=== PATIENT | male | born 1935 | race Caucasian/White ===

== ENCOUNTER 2018-11-24 11:26 | Inpatient (IN) ==
[2018-11-24] MEDS ORDERED: Naloxone 0.4 MG/ML INJ IVP PRN (14:45)
[2018-11-24] MEDS ORDERED: Ipratropium/Albuterol Neb 3 ML IH PRN (15:07)
--- NOTE | 2018-11-24 15:23 | Internal Med History&Physical ---
Date of Encounter: 11/24/18 Time of Encounter: 14:30 Internal Medicine - H&P: HPI Chief complaint: transfer from [place] [facility] for further evaluation of elevated D-dimer Admitted From: Intrahospital Transfer Plans for Post Hospital Care: Home History of present illness: Mr. Mann is a 82 year old male with PMH of HTN, CHF s/p ICD placement, hypothyroidism, anxiety, peripheral neuropathy, CKD s/p right nephrectomy, carot id stenosis who presented to the [place] [facility] for evaluation of shortness of breath. Pt states he was in his usual state of health yesterday. Reports of drinking six beers last night and woke up in the middle of the night feeling short of breath and diffuse chest pain with deep inspiration. Pt is noted to have severe anxiety and is very preoccupied with his medical health. He was noted to have elevated D-dimer and due to CKD, CTA chest was not done and pt was transferred to [facility] for V/Q scan. He was also noted to have Left lung base PNA for which he received Ceftriaxone prior to transfer. Pt is seen and examined with RN present at bedside. Pt is currently saturating well on nasal cannula, appears very anxious, and is noted to be hypertensive. He reports of pleuritic chest pain worsened with deep breaths. Reports of having chills last night but denies any fever or cough. He denies any headache, dizziness, vision changes, abd pain, n/v at this time. Ten point ROS is negative except as listed above Past Med Surg Social Fam HX - Past Medical History Medical history: cancer, coronary artery disease, CVA, diabetes, hypertension, renal disease, other Additional medical history: Prostate cancer. Shingles Psychiatric history: no psych history, other - Past Surgical History Additional surgical history: left kidney removed, testicle removed. skin ca, - Social History Smoking Status: Former smoker Smokeless Tobacco Status: No Alcohol use: none Drug use: none - Family History Mother Living Status: Hx Family Cardiac Disorders: Yes Internal Medicine - H&P: Meds Aspirin 81 mg PO DAILY 12/09/15 [History] Folic Acid 1 mg PO DAILY 12/09/15 [History] Levothyroxine [Levothyroxine Sodium] 137 mcg PO DAILY@0630 12/09/15 [History] Metoprolol Succinate 200 mg PO DAILY 12/09/15 [History] raNITIdine HCl [Zantac] 150 mg PO DAILY 12/09/15 [History] Cetirizine HCl [Zyrtec] 10 mg PO DAILY 06/29/17 [History] Cholecalciferol (Vitamin D3) [Vitamin D] 1,000 unit PO DAILY 06/29/17 [History] Docusate [Colace] 200 mg PO BID 06/29/17 [History] Hydralazine HCl 50 mg PO TID 06/29/17 [History] diazePAM [Valium] 5 mg PO DAILY 06/29/17 [History] hydroCHLOROthiazide [Hydrochlorothiazide] 25 mg PO DAILY 06/29/17 [History] Gabapentin [Neurontin] 600 mg PO BID 03/04/18 [History] Psyllium Husk [Metamucil] 660 gm PO BID 03/04/18 [History] Cetirizine HCl [Zyrtec] 10 mg PO 11/24/18 [History] Docusate [Colace] 200 mg PO BID 11/24/18 [History] Folic Acid 1 mg PO DAILY 11/24/18 [History] Allergy/AdvReac Type Severity Reaction Status Date / Time codeine Allergy See Verified 10/07/18 06:44 Comments sulfamethoxazole Allergy See Verified 10/07/18 06:44 [From Bactrim] Comments trimethoprim [From Bactrim] Allergy See Verified 10/07/18 06:44 Comments levofloxacin [From Levaquin] AdvReac Nausea Verified 10/07/18 06:44 All Systems PM: A 10-system review of systems was performed and is negative for pertinent findings except as documented above in the HPI. Review of systems: Ten point ROS is negative except as listed in the HPI - Constitutional Vitals: Temp Pulse Resp BP Pulse Ox 97.8 F 50 18 193/93 100 11/24/18 14:24 11/24/18 14:24 11/24/18 14:24 11/24/18 14:24 11/24/18 14:24 Exam: General: No acute distress, AAO x 3, obese, anxious HEENT: EOMI, PERRLA, NC/AT, no scleral icterus Respiratory:coarse breath sounds, no wheezing, no rales Cardiovascular: Regular, Rate, Rhythm, No murmurs GI: Soft, Non tender, non distended, normal bowel sounds Ext: No edema, no tenderness, positive pulses Neuro: AAO x 3, no focal deficits Rest of the clinical exam is noncontributory - Summary of Assessment and Plan Summary of Assessment and Plan: Mr. Mann is a 82 year old male with PMH of DM type II, HTN, CHF s/p ICD placement, hypothyroidism, anxiety, peripheral neuropathy, CKD s/p right nephrectomy, carotid stenosis who presented to the [place] ER for evaluation of shortness of breath. Assessment/Plan: 1. Acute respiratory distress secondary to LLL PNA continue IV Ceftriaxone and Azithromycin bronchodilator support as needed O2 supplementation as needed f/u blood cultures will closely monitor respiratory status titrate off O2 therapy as tolerated to maintain O2 saturation >92% 2. Elevated D-dimer f/u V/Q scan if positive, will start anticoagulation with heparin drip 3. Chest pain likely pleuritic and unlikely ACS will monitor serial TNI at this time will obtain 2D echo 4. CKD hx of nephrectomy renal function at baseline, will continue to monitor 5. Uncontrolled HTN restarted home medications will closely monitor BP will adjust antihypertensive meds if remains hypertensive 6. Hypothyroidism continue home dose of levothyroxine 7. Anxiety continue home meds 8. CHF reported hx however not on any HF med regimen currently no clinical signs of acute decompensation 9. Alcohol abuse pt denies daily alcohol use will continue Folate and Thiamine supplementation will closely monitor for signs of alcohol withdrawal if needed will initiate CIWA protocol 10. DVT ppx: Heparin SQ LOS > 2 midnights Care plan discussed with patient/RN - Time Spent With Patient Total time spent is greater than 50% in coordination of care (as documented) at patient's floor/unit and/or counseling patient: 25 - 35 minutes
[2018-11-24] MEDS ORDERED: *HR* Heparin 5,000 UNIT/ML VIAL IVP ONE (16:08)
[2018-11-24] MEDS ORDERED: *HR* Heparin 5,000 UNIT/ML VIAL IVP PRN ×2 (16:08)
[2018-11-24 16:55] LABS: Hematocrit 48.7 % (37.5-50.1); Hemoglobin 15.4 g/dL (12.9-16.9); Mean Corpuscular HGB Conc 31.6 g/dL (31.6-35.5); Mean Corpuscular Hemoglobin 30.4 pg (28.0-33.3); Mean Corpuscular Volume 96.1 fL (83.0-100.0); Mean Platelet Volume 10.9 fL (9.4-12.4); Platelet Count 255 K/mcL (140-400); Red Blood Count 5.07 M/mcL (4.19-5.50); Red Cell Distribution Width 14.4 % (11.5-14.5)
[2018-11-24 17:06] LABS: INR 0.9; Prothrombin Time 10.4 Seconds (9.4-12.1)
[2018-11-24] MEDS: hydroCHLOROthiazide 25 MG TABLET PO SCH (17:43)
[2018-11-24] MEDS: hydrALAZINE 25 MG TABLET PO SCH ×2 (17:43→20:37)
[2018-11-24] MEDS: Azithromycin 500 MG in D5% in Water 250 ML IVPB SCH (17:43)
[2018-11-24] MEDS: Heparin 25,000 UNIT/250 ML D5W 25,000 UNIT/250 ML IV.SOLN IVC SCH (17:46)
[2018-11-24] MEDS ORDERED: *HR* Heparin 5,000 UNIT/ML VIAL SQ SCH (18:00)
[2018-11-24] MEDS ORDERED: Nitroglycerin 0.4 MG TAB.SUBL SL ONE (18:58)
[2018-11-24] MEDS: Nitroglycerin 0.4 MG TAB.SUBL SL PRN ×2 (19:00→19:06)
[2018-11-24] MEDS ORDERED: *HR* LORazepam 1 MG TABLET PO ONE (19:44)
[2018-11-24] MEDS: Gabapentin 300 MG CAPSULE PO SCH (20:37)
[2018-11-25 00:46] LABS: Basophils % 0.5 %; Eosinophils # 0.1 K/mcL (0.0-0.6); Eosinophils % 0.6 %; Hematocrit 40.8 % (37.5-50.1); Immature Granulocytes % 0.5 % (0-4); Lymphocytes # 1.2 K/mcL (0.6-4.6); Lymphocytes % 13.3 %; Mean Corpuscular HGB Conc 31.9 g/dL (31.6-35.5); Mean Corpuscular Hemoglobin 30.2 pg (28.0-33.3); Mean Corpuscular Volume 94.9 fL (83.0-100.0); Mean Platelet Volume 10.8 fL (9.4-12.4); Monocytes # 1.1 K/mcL (0.0-1.3); Neutrophils # 6.3 K/mcL (1.6-8.9); Platelet Count 201 K/mcL (140-400); Red Cell Distribution Width 14.3 % (11.5-14.5); Segmented Neutrophils % 72.1 %
[2018-11-25 01:05] LABS: Calcium 9.1 mg/dL (8.6-10.3); Phosphorous 3.4 mg/dL (2.7-4.5); Potassium 4.2 mEq/L (3.5-5.1)
[2018-11-25 04:31] LABS: Bilirubin,Urine Negative (Negative); Blood,Urine Negative (Negative); Clarity,Urine Clear (Clear); Color,Urine Yellow (Yellow); Glucose,Urine (UA) Normal (Normal); Ketones,Urine Negative (Negative); Leukocyte Esterase,Urine Negative (Negative); Nitrite,Urine Negative (Negative); Protein,Urine Negative (Neg-Trace); Specific Gravity,Urine < 1.005 (1.010-1.025); Urobilinogen,Urine Normal (Normal)
[2018-11-25] MEDS ORDERED: Metoprolol XL (24 HR) Succ 50 MG TAB.ER.24H PO SCH (09:00)
[2018-11-25] MEDS ORDERED: Cyanocobalamin (B-12) 1,000 MCG TABLET PO SCH (09:00)
[2018-11-25] MEDS ORDERED: Folic Acid 1 MG TABLET PO SCH (09:00)
[2018-11-25] MEDS: Cholecalciferol (D-3) 1,000 UNIT TABLET PO SCH (09:55)
[2018-11-25] MEDS: Thiamine (B-1) 100 MG TABLET PO SCH (09:55)
[2018-11-25] MEDS: Gabapentin 300 MG CAPSULE PO SCH ×2 (09:55→20:34)
[2018-11-25] MEDS: diazePAM 5 MG TABLET PO SCH (09:56)
[2018-11-25] MEDS: hydroCHLOROthiazide 25 MG TABLET PO SCH (09:56)
[2018-11-25] MEDS: hydrALAZINE 25 MG TABLET PO SCH ×3 (09:56→20:34)
[2018-11-25] MEDS: cefTRIAXone 1,000 MG in Water for inj. (sterile) 20 ML 10 ML IVP SCH (09:57)
[2018-11-25] MEDS: Aspirin 81 MG TAB.CHEW PO SCH (09:57)
[2018-11-25] MEDS: Folic Acid 1 MG TABLET PO SCH (09:57)
[2018-11-25] MEDS: Metoprolol XL (24 HR) Succ 50 MG TAB.ER.24H PO SCH (09:57)
--- NOTE | 2018-11-25 10:39 | Cardiology Consult Note ---
Date of Encounter: 11/25/18 Time of Encounter: 10:35 Assessment and Plan (1) Chest pain Current Visit: Yes Status: Acute Chest pain, SOB atypical for ischemia. Likely secondary to pneumonia. Would check echo and trend troponins. Further workup based one results. Qualifiers: Qualified Code(s): R07.9 - Chest pain, unspecified Discussion w patient/family: The assessment and plan as outlined above was discussed with the patient and/or family members who expressed understanding and agreement. All questions were answered. Thank you for involving us in the care of your patient. Please call [facility] any questions. History of Present Illness Consult date: 11/25/18 Requesting physician: Angelica Jensen Consult reason: Elevated trop. Chief complaint: SOB, cheat pain History of present illness: Mr. Mann is a 82 year old male with history of AF, tachybrady S/P pacemaker and CRI presented with the acute onset of SOB and atypical cheat pain. Last heart cath 2013 reportedly showed minimal CAD. Pain described and pleuritic and accross chest. Associated SOB. At outside hospital D- Dimer was elevated, subsequent VQ scan negative. Found to have pneumonia. Past Med Surg Social Fam HX - Past Medical History Medical history: cancer, coronary artery disease, CVA, diabetes, hypertension, renal disease, other Additional medical history: Prostate cancer. Shingles Psychiatric history: no psych history, other - Past Surgical History Surgical History: cancer surgery Additional surgical history: left kidney removed, testicle removed. skin ca, - Social History Smoking Status: Former smoker Smokeless Tobacco Status: No Alcohol use: none Drug use: none - Family History Mother Living Status: Hx Family Cardiac Disorders: Yes Medications and Allergies Aspirin 81 mg PO DAILY 12/09/15 [History] Folic Acid 1 mg PO DAILY 12/09/15 [History] Levothyroxine [Levothyroxine Sodium] 137 mcg PO DAILY@0630 12/09/15 [History] Metoprolol Succinate 200 mg PO DAILY 12/09/15 [History] raNITIdine HCl [Zantac] 150 mg PO DAILY 12/09/15 [History] Cetirizine HCl [Zyrtec] 10 mg PO DAILY 06/29/17 [History] Cholecalciferol (Vitamin D3) [Vitamin D] 1,000 unit PO DAILY 06/29/17 [History] Docusate [Colace] 200 mg PO BID 06/29/17 [History] Hydralazine HCl 50 mg PO TID 06/29/17 [History] diazePAM [Valium] 5 mg PO DAILY 06/29/17 [History] hydroCHLOROthiazide [Hydrochlorothiazide] 25 mg PO DAILY 06/29/17 [History] Gabapentin [Neurontin] 600 mg PO BID 03/04/18 [History] Psyllium Husk [Metamucil] 660 gm PO BID 03/04/18 [History] Cetirizine HCl [Zyrtec] 10 mg PO 11/24/18 [History] Docusate [Colace] 200 mg PO BID 11/24/18 [History] Folic Acid 1 mg PO DAILY 11/24/18 [History] Allergy/AdvReac Type Severity Reaction Status Date / Time codeine Allergy See Verified 10/07/18 06:44 Comments sulfamethoxazole Allergy See Verified 10/07/18 06:44 [From Bactrim] Comments trimethoprim [From Bactrim] Allergy See Verified 10/07/18 06:44 Comments levofloxacin [From Levaquin] AdvReac Nausea Verified 10/07/18 06:44 All Systems Review: The remainder of the systems were reviewed and are negative Physical Examination Vital Signs, Last 4 Hours Temp Pulse BP Pulse Ox 11/25/18 07:05 97.9 F 49 149/70 98 General: Conversant, No Apparent Distress HEENT: Atraumatic, Normocephaly, Mucus Membranes Moist Neck: No JVD, Normal carotid pulses Cardiac: Reg Rate and Rhythm, Normal S1 and S2, No Murmur Lungs: Other (Decreased at bases. ) Neuro: Alert and responsive, No focal deficits noted Abdomen: Soft, Non-Tender Skin: No rashes noted on visualized skin Extremities: No Clubbing, No Cyanosis, No Edema, Normal Pulses Results 11/25/18 00:32 11/25/18 00:32 Lab Results 11/24/18 11/24/18 11/24/18 15:20 16:36 16:36 WBC 11.7 H Hgb 15.4 Hct 48.7 Plt Count 255 INR 0.9 Sodium Potassium Chloride Carbon Dioxide BUN Creatinine Glucose Calcium Magnesium Troponin I 0.17 H* 11/24/18 11/25/18 11/25/18 21:15 00:32 00:32 WBC 8.7 Hgb 13.0 D Hct 40.8 Plt Count 201 INR Sodium 135 L Potassium 4.2 Chloride 98 Carbon Dioxide 32 H BUN 33 H Creatinine 1.60 H Glucose 106 H Calcium 9.1 Magnesium 2.0 Troponin I 0.23 H* - EKG Interpretation EKG results cardiology: personally reviewed (Underlying AF, V pacing) Consult Discharge Plan - Plan Referrals: NONE,PCP [Primary Care Provider] -
--- NOTE | 2018-11-25 12:16 | Internal Med Progress Note ---
Hospitalist Progress Note - Encounter Date of Encounter: 11/25/18 Time of Encounter: 12:11 - Subjective Interval History: Patient seen and examined earlier today. Pt sitting in chair and states he feels significantly better compared to previous day. He has extreme anxiety about his medical health and states he gets flustered and starts feeling short of breath frequently because of his anxiety He is calm during my evaluation. Extensive counseling was provided in regards to patient's current hospital diagnosis and his co-morbidities. He denies any shortness of breath or chest pain at this time. ten point ROS is negative except as listed above - Exam Vitals: Temp Pulse Resp BP Pulse Ox 97.8 F 76 16 112/72 90 11/25/18 11:17 11/25/18 11:17 11/25/18 04:35 11/25/18 11:17 11/25/18 11:17 All Lab Results (24 Hours) 11/24/18 11/24/18 11/24/18 Range/Units 15:20 16:36 16:36 WBC 11.7 H (4.3-11.1) K/mcL RBC 5.07 (4.19-5.50) M/mcL Hgb 15.4 (12.9-16.9) g/dL Hct 48.7 (37.5-50.1) % MCV 96.1 (83.0-100.0) fL MCH 30.4 (28.0-33.3) pg MCHC 31.6 (31.6-35.5) g/dL RDW 14.4 (11.5-14.5) % Plt Count 255 (140-400) K/mcL MPV 10.9 (9.4-12.4) fL Immature Gran % (0-4) % Seg Neutrophils % % Lymphocytes % % Monocytes % % Eosinophils % % Basophils % % Neutrophils # (1.6-8.9) K/mcL Lymphocytes # (0.6-4.6) K/mcL Monocytes # (0.0-1.3) K/mcL Eosinophils # (0.0-0.6) K/mcL Basophils # (0.0-0.2) K/mcL PT 10.4 (9.4-12.1) Seconds INR 0.9 Heparin Anti-Xa, Unfract 0.00 L (0.30-0.70) IU/mL Sodium (136-145) mEq/L Potassium (3.5-5.1) mEq/L Chloride (98-107) mEq/L Carbon Dioxide (23-29) mEq/L BUN (8-23) mg/dL Creatinine (0.70-1.30) mg/dL Est GFR ( Amer) (> 60) Est GFR (Non-Af Amer) (> 60) BUN/Creatinine Ratio (6-26) Glucose (70-105) mg/dL POC Glucose (70-99) mg/dL Calculated Osmolality (280-300) Calcium (8.6-10.3) mg/dL Phosphorus (2.7-4.5) mg/dL Magnesium (1.6-2.6) mg/dL Troponin I 0.17 H* (< 0.04) ng/mL Urine Color (Yellow) Urine Clarity (Clear) Urine pH (5.0-8.0) pH Units Ur Specific Banner (1.010-1.025) Urine Protein (Neg-Trace) mg/dL Urine Glucose (UA) (Normal) mg/dL Urine Ketones (Negative) mg/dL Urine Blood (Negative) Urine Nitrite (Negative) Urine Bilirubin (Negative) Urine Urobilinogen (Normal) mg/dL Ur Leukocyte Esterase (Negative) Ur Culture Indicated? (NO) 11/24/18 11/24/18 11/24/18 Range/Units 16:44 20:01 21:15 WBC (4.3-11.1) K/mcL RBC (4.19-5.50) M/mcL Hgb (12.9-16.9) g/dL Hct (37.5-50.1) % MCV (83.0-100.0) fL MCH (28.0-33.3) pg MCHC (31.6-35.5) g/dL RDW (11.5-14.5) % Plt Count (140-400) K/mcL MPV (9.4-12.4) fL Immature Gran % (0-4) % Seg Neutrophils % % Lymphocytes % % Monocytes % % Eosinophils % % Basophils % % Neutrophils # (1.6-8.9) K/mcL Lymphocytes # (0.6-4.6) K/mcL Monocytes # (0.0-1.3) K/mcL Eosinophils # (0.0-0.6) K/mcL Basophils # (0.0-0.2) K/mcL PT (9.4-12.1) Seconds INR Heparin Anti-Xa, Unfract (0.30-0.70) IU/mL Sodium (136-145) mEq/L Potassium (3.5-5.1) mEq/L Chloride (98-107) mEq/L Carbon Dioxide (23-29) mEq/L BUN (8-23) mg/dL Creatinine (0.70-1.30) mg/dL Est GFR ( Amer) (> 60) Est GFR (Non-Af Amer) (> 60) BUN/Creatinine Ratio (6-26) Glucose (70-105) mg/dL POC Glucose 113 H 129 H (70-99) mg/dL Calculated Osmolality (280-300) Calcium (8.6-10.3) mg/dL Phosphorus (2.7-4.5) mg/dL Magnesium (1.6-2.6) mg/dL Troponin I 0.23 H* (< 0.04) ng/mL Urine Color (Yellow) Urine Clarity (Clear) Urine pH (5.0-8.0) pH Units Ur Specific Banner (1.010-1.025) Urine Protein (Neg-Trace) mg/dL Urine Glucose (UA) (Normal) mg/dL Urine Ketones (Negative) mg/dL Urine Blood (Negative) Urine Nitrite (Negative) Urine Bilirubin (Negative) Urine Urobilinogen (Normal) mg/dL Ur Leukocyte Esterase (Negative) Ur Culture Indicated? (NO) 11/25/18 11/25/18 11/25/18 Range/Units 00:32 00:32 00:32 WBC 8.7 (4.3-11.1) K/mcL RBC 4.30 (4.19-5.50) M/mcL Hgb 13.0 D (12.9-16.9) g/dL Hct 40.8 (37.5-50.1) % MCV 94.9 (83.0-100.0) fL MCH 30.2 (28.0-33.3) pg MCHC 31.9 (31.6-35.5) g/dL RDW 14.3 (11.5-14.5) % Plt Count 201 (140-400) K/mcL MPV 10.8 (9.4-12.4) fL Immature Gran % 0.5 (0-4) % Seg Neutrophils % 72.1 % Lymphocytes % 13.3 % Monocytes % 13.0 % Eosinophils % 0.6 % Basophils % 0.5 % Neutrophils # 6.3 (1.6-8.9) K/mcL Lymphocytes # 1.2 (0.6-4.6) K/mcL Monocytes # 1.1 (0.0-1.3) K/mcL Eosinophils # 0.1 (0.0-0.6) K/mcL Basophils # 0.0 (0.0-0.2) K/mcL PT (9.4-12.1) Seconds INR Heparin Anti-Xa, Unfract 0.40 (0.30-0.70) IU/mL Sodium 135 L (136-145) mEq/L Potassium 4.2 (3.5-5.1) mEq/L Chloride 98 (98-107) mEq/L Carbon Dioxide 32 H (23-29) mEq/L BUN 33 H (8-23) mg/dL Creatinine 1.60 H (0.70-1.30) mg/dL Est GFR ( Amer) 50 L (> 60) Est GFR (Non-Af Amer) 41 L (> 60) BUN/Creatinine Ratio 21 (6-26) Glucose 106 H (70-105) mg/dL POC Glucose (70-99) mg/dL Calculated Osmolality 288 (280-300) Calcium 9.1 (8.6-10.3) mg/dL Phosphorus 3.4 (2.7-4.5) mg/dL Magnesium 2.0 (1.6-2.6) mg/dL Troponin I (< 0.04) ng/mL Urine Color (Yellow) Urine Clarity (Clear) Urine pH (5.0-8.0) pH Units Ur Specific Banner (1.010-1.025) Urine Protein (Neg-Trace) mg/dL Urine Glucose (UA) (Normal) mg/dL Urine Ketones (Negative) mg/dL Urine Blood (Negative) Urine Nitrite (Negative) Urine Bilirubin (Negative) Urine Urobilinogen (Normal) mg/dL Ur Leukocyte Esterase (Negative) Ur Culture Indicated? (NO) 11/25/18 11/25/1811/25/19 Range/Units 04:22 06:21 10:56 WBC (4.3-11.1) K/mcL RBC (4.19-5.50) M/mcL Hgb (12.9-16.9) g/dL Hct (37.5-50.1) % MCV (83.0-100.0) fL MCH (28.0-33.3) pg MCHC (31.6-35.5) g/dL RDW (11.5-14.5) % Plt Count (140-400) K/mcL MPV (9.4-12.4) fL Immature Gran % (0-4) % Seg Neutrophils % % Lymphocytes % % Monocytes % % Eosinophils % % Basophils % % Neutrophils # (1.6-8.9) K/mcL Lymphocytes # (0.6-4.6) K/mcL Monocytes # (0.0-1.3) K/mcL Eosinophils # (0.0-0.6) K/mcL Basophils # (0.0-0.2) K/mcL PT (9.4-12.1) Seconds INR Heparin Anti-Xa, Unfract 0.29 L (0.30-0.70) IU/mL Sodium (136-145) mEq/L Potassium (3.5-5.1) mEq/L Chloride (98-107) mEq/L Carbon Dioxide (23-29) mEq/L BUN (8-23) mg/dL Creatinine (0.70-1.30) mg/dL Est GFR ( Amer) (> 60) Est GFR (Non-Af Amer) (> 60) BUN/Creatinine Ratio (6-26) Glucose (70-105) mg/dL POC Glucose (70-99) mg/dL Calculated Osmolality (280-300) Calcium (8.6-10.3) mg/dL Phosphorus (2.7-4.5) mg/dL Magnesium (1.6-2.6) mg/dL Troponin I 0.08 H* (< 0.04) ng/mL Urine Color Yellow (Yellow) Urine Clarity Clear (Clear) Urine pH 6.0 (5.0-8.0) pH Units Ur Specific Banner < 1.005 L (1.010-1.025) Urine Protein Negative (Neg-Trace) mg/dL Urine Glucose (UA) Normal (Normal) mg/dL Urine Ketones Negative (Negative) mg/dL Urine Blood Negative (Negative) Urine Nitrite Negative (Negative) Urine Bilirubin Negative (Negative) Urine Urobilinogen Normal (Normal) mg/dL Ur Leukocyte Esterase Negative (Negative) Ur Culture Indicated? NO (NO) Exam: General: No acute distress, AAO x 3, obese HEENT: EOMI, NC/AT, no scleral icterus Respiratory:coarse breath sounds, no wheezing, no rales Cardiovascular: Regular, Rate, Rhythm, No murmurs GI: Soft, Non tender, non distended, normal bowel sounds Ext: No edema, no tenderness, positive pulses Neuro: AAO x 3, no focal deficits Rest of the clinical exam is noncontributory - Summary of Assessment and Plan Summary of Assessment and Plan: Mr. Mann is a 82 year old male with PMH of DM type II, HTN, CHF s/p ICD placement, hypothyroidism, anxiety, peripheral neuropathy, CKD s/p right nephrectomy, carotid stenosis who presented to the [place] ER for evaluation of shortness of breath. Assessment/Plan: 1. Acute respiratory distress secondary to LLL PNA continue IV Ceftriaxone and Azithromycin (day 2) bronchodilator support as needed O2 supplementation as needed blood cultures reporting no growth thus far will closely monitor respiratory status titrate off O2 therapy as tolerated to maintain O2 saturation >92% 2. Elevated D-dimer VQ scan negative for PE 3. Chest pain given elevated TNI, pt was started on heparin drip cardiology input appreciated will continue heparin drip as per cardio f/u 2D echo 4. CKD hx of nephrectomy renal function at baseline, will continue to monitor 5. Uncontrolled HTN BP within acceptable range continue current management will closely monitor BP will adjust antihypertensive meds if remains hypertensive 6. Hypothyroidism continue home dose of levothyroxine 7. Anxiety continue home meds 8. CHF reported hx however not on any HF med regimen currently no clinical signs of acute decompensation 9. Alcohol abuse pt denies daily alcohol use will continue Folate and Thiamine supplementation will closely monitor for signs of alcohol withdrawal if needed will initiate CIWA protocol 10. DVT ppx: on Heparin drip Care plan discussed with patient/RN - Time Spent with Patient Total time spent is greater than 50% in coordination of care (as documented) at patient's floor/unit and/or counseling patient: 38 minutes Greater than 35 minutes Plan of Care Discussed with: patient (patient/RN) Internal Medicine: Result - Labs CBC & Chem 7: 11/25/18 00:32 11/25/18 00:32 Labs: Short CBC 11/24/18 11/25/18 Range/Units 16:36 00:32 WBC 11.7 H 8.7 (4.3-11.1) K/mcL Hgb 15.4 13.0 D (12.9-16.9) g/dL Hct 48.7 40.8 (37.5-50.1) % Plt Count 255 201 (140-400) K/mcL Neutrophils # 6.3 (1.6-8.9) K/mcL BMP 11/25/18 00:32 Sodium 135 L Potassium 4.2 Chloride 98 Carbon Dioxide 32 H BUN 33 H Creatinine 1.60 H Glucose 106 H Calcium 9.1 Cardiac Enzymes 11/24/18 11/24/18 11/25/18 Range/Units 15:20 21:15 10:56 Troponin I 0.17 H* 0.23 H* 0.08 H* (< 0.04) ng/mL Urine 11/25/18 Range/Units 04:22 Urine Color Yellow (Yellow) Urine Clarity Clear (Clear) Urine pH 6.0 (5.0-8.0) pH Units Ur Specific Banner < 1.005 L (1.010-1.025) Urine Protein Negative (Neg-Trace) mg/dL Urine Glucose (UA) Normal (Normal) mg/dL - ABG Interpretation ABG results: PT/INR, D-dimer PT 10.4 Seconds (9.4-12.1) 11/24/18 16:36 - Impressions Impressions Pulmonary Perfusion Imaging 11/24/18 14:46 IMPRESSION: Low probability for pulmonary embolus. D/ / Daniel Paul MD / Daniel Paul MD Interpreting Provider: Daniel Paul MD Consult Discharge Plan - Plan Referrals: NONE,PCP [Primary Care Provider] -
--- NOTE | 2018-11-25 12:47 | Event Note ---
Date of Encounter: 11/25/18 Time of Encounter: 12:40 - Cardiology Event Note Discussed with Dr. Eligio Barnes, will continue IV Hep. gtt for now.
[2018-11-25] MEDS: Azithromycin 500 MG in D5% in Water 250 ML IVPB SCH (16:04)
[2018-11-25] MEDS: Heparin 25,000 UNIT/250 ML D5W 25,000 UNIT/250 ML IV.SOLN IVC SCH (17:26)
[2018-11-26 07:13] LABS: Calcium 9.4 mg/dL (8.6-10.3); Magnesium 2.1 mg/dL (1.6-2.6); Phosphorous 3.1 mg/dL (2.7-4.5); Potassium 4.2 mEq/L (3.5-5.1)
[2018-11-26] MEDS: Thiamine (B-1) 100 MG TABLET PO SCH (08:58)
[2018-11-26] MEDS: hydroCHLOROthiazide 25 MG TABLET PO SCH (08:59)
[2018-11-26] MEDS: Cholecalciferol (D-3) 1,000 UNIT TABLET PO SCH (08:59)
[2018-11-26] MEDS: hydrALAZINE 25 MG TABLET PO SCH ×3 (08:59→21:30)
[2018-11-26] MEDS: Aspirin 81 MG TAB.CHEW PO SCH (08:59)
[2018-11-26] MEDS: diazePAM 5 MG TABLET PO SCH (09:00)
[2018-11-26] MEDS: Metoprolol XL (24 HR) Succ 50 MG TAB.ER.24H PO SCH ×2 (09:00→11:56)
[2018-11-26] MEDS: Gabapentin 300 MG CAPSULE PO SCH ×2 (09:00→21:31)
[2018-11-26] MEDS: Folic Acid 1 MG TABLET PO SCH (09:00)
[2018-11-26] MEDS: cefTRIAXone 1,000 MG in Water for inj. (sterile) 20 ML 10 ML IVP SCH (09:01)
--- NOTE | 2018-11-26 10:32 | Internal Med Progress Note ---
Hospitalist Progress Note - Encounter Date of Encounter: 11/26/18 Time of Encounter: 10:30 - Subjective Interval History: Patient seen and examined earlier today. Resting in bed and states he feels tired today but denies any shortness of breath, chest pain, cough, abd pain, n/v, fever, or chills. He remains on heparin drip and awaiting TTE. No overnight events reported. Ten point ROS is negative except as listed above - Exam Vitals: Temp Pulse Resp BP Pulse Ox 97.6 F 49 16 158/72 90 11/26/18 07:01 11/26/18 07:01 11/26/18 05:39 11/26/18 07:01 11/26/18 07:01 Exam: General: No acute distress, AAO x 3, obese HEENT: EOMI, NC/AT, no scleral icterus Respiratory:equal air entry bilaterally, no wheezing, no rales Cardiovascular: Regular Rhythm, Sinus bradycardia present, No murmurs GI: Soft, Non tender, non distended, normal bowel sounds Ext: No edema, no tenderness, positive pulses Neuro: AAO x 3, no focal deficits Rest of the clinical exam is noncontributory - Summary of Assessment and Plan Summary of Assessment and Plan: Mr. Mann is a 82 year old male with PMH of DM type II, HTN, CHF s/p ICD placement, hypothyroidism, anxiety, peripheral neuropathy, CKD s/p right nephrectomy, carotid stenosis who presented to the [place] ER for evaluation of shortness of breath. Assessment/Plan: 1. Acute respiratory distress secondary to LLL PNA continue IV Ceftriaxone and Azithromycin (day 3) bronchodilator support as needed O2 supplementation as needed blood cultures reporting no growth thus far will closely monitor respiratory status titrate off O2 therapy as tolerated to maintain O2 saturation >92% 2. Elevated D-dimer VQ scan negative for PE 3. Chest pain given elevated TNI, pt was started on heparin drip cardiology input appreciated will continue heparin drip as per cardio f/u 2D echo 4. CKD hx of nephrectomy renal function at baseline, will continue to monitor 5. Uncontrolled HTN Noted to be hypertensive this morning BB on hold due to bradycardia will closely monitor BP will adjust antihypertensive meds if remains hypertensive 6. Hypothyroidism continue home dose of levothyroxine 7. Anxiety continue home meds 8. CHF reported hx however not on any HF med regimen currently no clinical signs of acute decompensation 9. Alcohol abuse pt denies daily alcohol use will continue Folate and Thiamine supplementation no clinical signs of alcohol withdrawal reported, will continue to closely monitor for signs of alcohol withdrawal 10. DVT ppx: on Heparin drip Care plan discussed with patient/RN/consulting provider - Time Spent with Patient Total time spent is greater than 50% in coordination of care (as documented) at patient's floor/unit and/or counseling patient: 25 - 35 minutes Internal Medicine: Result - Labs CBC & Chem 7: 11/25/18 00:32 11/26/18 06:01 Labs: BMP 11/26/18 06:01 Sodium 139 Potassium 4.2 Chloride 99 Carbon Dioxide 35 H BUN 36 H Creatinine 1.52 H Glucose 108 H Calcium 9.4 Cardiac Enzymes 11/25/18 Range/Units 10:56 Troponin I 0.08 H* (< 0.04) ng/mL - ABG Interpretation ABG results: PT/INR, D-dimer PT 10.4 Seconds (9.4-12.1) 11/24/18 16:36 Consult Discharge Plan - Plan Referrals: NONE,PCP [Primary Care Provider] -
--- NOTE | 2018-11-26 11:01 | Cardiology Progress Note ---
Date of Encounter: 11/26/18 Time of Encounter: 11:00 Assessment and Plan (1) Community acquired pneumonia Current Visit: No Status: Acute Per Cardiology: On antibiotics. Management per primary service. Qualifiers: Laterality: unspecified laterality Qualified Code(s): J18.9 - Pneumonia, unspecified organism (2) Chest pain Current Visit: Yes Status: Acute Per Cardiology: Previosu note reviewed: "Chest pain, SOB atypical for ischemia. Likely secondary to pneumonia. Would check echo and trend troponins. Further workup based one results". Echo pending. Qualifiers: Qualified Code(s): R07.9 - Chest pain, unspecified (3) Elevated troponin I measurement Current Visit: Yes Status: Acute Per Cardiology: Troponins mildly elevated, flat and adynamic with peak of 0.23. On heparin drip. Chest pain-free. Echo pending. Further recommendations after echo. No cardiac rehabilitation consult warranted at this juncture. On aspirin and beta aiyana. (4) Elevated d-dimer Current Visit: No Status: Acute Per Cardiology: VQ scan low probability for PE. (5) Hypertension, essential Current Visit: No Status: Chronic Per Cardiology: It appears Toprol-XL 200 mg by mouth daily held this morning for concerns of bradycardia. Recommend continue to give as patient has pacemaker with low s etting set at 50. Average heart rate on telemetry past 12 hours 50 with ventricular pacing. Do not hold beta aiyana. Discussion w patient/family: The assessment and plan as outlined above was discussed with the patient and/or family members who expressed understanding and agreement. All questions were answered. Thank you for involving us in the care of your patient. Please call with any questions. Subjective Principal diagnosis: Elevated Trop Interval history: Denies any chest pain. Reports shortness of breath has improved during hospital stay. Denies any active bleeding or blood loss. Objective Vital Signs, Last 4 Hours Temp Pulse BP Pulse Ox 11/26/18 07:01 97.6 F 49 158/72 90 General: Conversant, No Apparent Distress HEENT: Atraumatic, Normocephaly, Mucus Membranes Moist Neck: No JVD, Normal carotid pulses Cardiac: Reg Rate and Rhythm, Normal S1 and S2, No Murmur Lungs: Normal Breath Sounds, No Wheeze, Rales, Rhonchi Neuro: Alert and responsive, No focal deficits noted Abdomen: Soft, Non-Tender Skin: No rashes noted on visualized skin Musculoskeletal: No Chest Wall Tenderness Extremities: No Clubbing, No Cyanosis, No Edema, Normal Pulses Results 11/25/18 00:32 11/26/18 06:01 Lab Results Laboratory Tests 11/24/18 11/24/18 11/24/18 15:20 16:36 21:15 INR 0.9 Creatinine Est GFR (Non-Af Amer) Troponin I 0.17 H* 0.23 H* 11/25/18 11/26/18 10:56 06:01 INR Creatinine 1.52 H Est GFR (Non-Af Amer) 44 L Troponin I 0.08 H* ITS Impressions Pulmonary Perfusion Imaging 11/24/18 14:46 IMPRESSION: Low probability for pulmonary embolus. D/ / Daniel Paul MD / Daniel Paul MD Interpreting Provider: Daniel Paul MD Active Medications Albuterol/Ipratropium (Duoneb) 3 ml IH [id number] PRN PRN Reason: Shortness Of Breath/Wheezing Stop: 05/26/19 15:08 Aspirin (Aspirin) 81 mg PO DAILY [facility] Stop: 05/27/19 09:01 Last Admin: 11/26/18 08:59 Dose: 81 mg Documented by: Diazepam (Valium) 5 mg PO DAILY [facility] Stop: 05/27/19 09:01 Last Admin: 11/26/18 09:00 Dose: 5 mg Documented by: Docusate Sodium (Colace) 200 mg PO BID [facility]; Protocol Stop: 05/26/19 21:01 Last Admin: 11/26/18 08:59 Dose: 200 mg Documented by: Folic Acid (Folic Acid) 1 mg PO DAILY [facility] Stop: 05/27/19 09:01 Last Admin: 11/26/18 09:00 Dose: 1 mg Documented by: Gabapentin (Neurontin) 600 mg PO BID [facility] Stop: 05/26/19 21:01 Last Admin: 11/26/18 09:00 Dose: 600 mg Documented by: Heparin Sodium (Porcine) (Heparin) 4,000 unit IVP Q6HR PRN PRN Reason: SEE COMMENTS Stop: 05/26/19 16:09 Heparin Sodium (Porcine) (Heparin) 2,000 unit IVP Q6H PRN PRN Reason: SEE COMMENTS Stop: 05/26/19 16:09 Last Admin: 11/25/18 07:59 Dose: 2,000 unit Documented by: Hydralazine HCl (Hydralazine) 50 mg PO TID [facility] Stop: 05/26/19 15:01 Last Admin: 11/26/18 08:59 Dose: 50 mg Documented by: Hydrochlorothiazide (Hydrochlorothiazide) 25 mg PO DAILY [facility]; Protocol Stop: 05/26/19 15:01 Last Admin: 11/26/18 08:59 Dose: 25 mg Documented by: Azithromycin 500 mg/ Dextrose 250 mls @ 252 mls/hr IVPB Q24H [facility] Stop: 05/26/19 15:01 Last Infusion: 11/25/18 17:30 Dose: Infused Documented by: Ceftriaxone Sodium 1,000 mg/ (Sterile Water) 10 mls @ 600 mls/hr IVP DAILY [facility] Stop: 05/27/19 09:01 Last Admin: 11/26/18 09:01 Dose: 600 mls/hr Documented by: Heparin Sodium/Dextrose (Heparin 25,000 Unit/250 Ml D5w) 25,000 unit in 250 mls @ 9.9 mls/hr IVC .Q24H [facility]; Protocol Stop: 05/26/19 16:16 Last Titration: 11/25/18 20:32 Dose: 12.02 unit/kg/hr, 11.9 mls/hr Documented by: Levothyroxine Sodium (Levothyroxine Sodium) 137 mcg PO DAILY@0630 [facility] Stop: 05/27/19 06:31 Last Admin: 11/26/18 05:35 Dose: 137 mcg Documented by: Metoprolol Succinate (Toprol Xl) 200 mg PO DAILY [facility] Stop: 05/27/19 09:01 Last Admin: 11/26/18 09:00 Dose: Not Given Documented by: Naloxone HCl (Narcan) 0.4 mg IVP Q2MPRN PRN PRN Reason: SEE COMMENTS Stop: 05/26/19 14:46 Nitroglycerin (Nitroglycerin) 0.4 mg SL Q5MPRN PRN PRN Reason: Chest Pain Stop: 05/26/19 19:48 Last Admin: 11/24/18 19:06 Dose: 0.4 mg Documented by: Thiamine HCl (Vitamin B-1) 100 mg PO DAILY [facility] Stop: 05/27/19 09:01 Last Admin: 11/26/18 08:58 Dose: 100 mg Documented by: Vitamin D (Vitamin D) 1,000 unit PO DAILY [facility] Stop: 05/27/19 09:01 Last Admin: 11/26/18 08:59 Dose: 1,000 unit Documented by: - Imaging and Cardiology Echo: pending Consult Discharge Plan - Plan Referrals: NONE,PCP [Primary Care Provider] -
[2018-11-26] MEDS: Azithromycin 500 MG in D5% in Water 250 ML IVPB SCH (15:35)
[2018-11-27] MEDS: *HR* Heparin 5,000 UNIT/ML VIAL SQ SCH ×3 (05:55→19:58)
--- NOTE | 2018-11-27 08:09 | Event Note ---
Date of Encounter: 11/27/18 Time of Encounter: 08:10 - Cardiology Event Note ECHO: Impressions: LVEF 55%. Normal LV chamber size. Moderate concentric left ventricular hypertrophy. Moderately biatrial enlargement Mild-moderate mitral regurgitation. Mild tricuspid regurgitation. Unable to estimate RVSP due to incomplete TR jet. A device lead was visualized in the right atrium and right ventricle. Left Ventricular Wall Motion: Rest Echo Findings All wall segments showed normal motion. Per discussion with Dr. Eligio Barnes, follow up as outpatient (arranged), no further inpatient workup warranted at this juncture, re-consult PRN.
[2018-11-27] MEDS: cefTRIAXone 1,000 MG in Water for inj. (sterile) 20 ML 10 ML IVP SCH (08:56)
[2018-11-27] MEDS: Thiamine (B-1) 100 MG TABLET PO SCH (08:56)
[2018-11-27] MEDS: hydroCHLOROthiazide 25 MG TABLET PO SCH (08:56)
[2018-11-27] MEDS: Cholecalciferol (D-3) 1,000 UNIT TABLET PO SCH (08:56)
[2018-11-27] MEDS: Folic Acid 1 MG TABLET PO SCH (08:57)
[2018-11-27] MEDS: Aspirin 81 MG TAB.CHEW PO SCH (08:57)
[2018-11-27] MEDS: hydrALAZINE 25 MG TABLET PO SCH ×3 (08:57→19:58)
[2018-11-27] MEDS: Gabapentin 300 MG CAPSULE PO SCH ×2 (08:57→19:58)
[2018-11-27] MEDS: Metoprolol XL (24 HR) Succ 50 MG TAB.ER.24H PO SCH (08:58)
[2018-11-27] MEDS: diazePAM 5 MG TABLET PO SCH (09:01)
[2018-11-27 09:08] LABS: Basophils % 0.7 %; Eosinophils # 0.1 K/mcL (0.0-0.6); Eosinophils % 1.8 %; Hemoglobin 13.4 g/dL (12.9-16.9); Immature Granulocytes % 0.3 % (0-4); Lymphocytes # 0.9 K/mcL (0.6-4.6); Lymphocytes % 15.2 %; Mean Corpuscular HGB Conc 31.2 g/dL (31.6-35.5); Mean Corpuscular Hemoglobin 30.5 pg (28.0-33.3); Mean Corpuscular Volume 97.9 fL (83.0-100.0); Mean Platelet Volume 10.8 fL (9.4-12.4); Monocytes # 0.8 K/mcL (0.0-1.3); Monocytes % 12.5 %; Neutrophils # 4.2 K/mcL (1.6-8.9); Platelet Count 195 K/mcL (140-400); Red Blood Count 4.39 M/mcL (4.19-5.50); Segmented Neutrophils % 69.5 %
[2018-11-27 09:24] LABS: Calcium 9.8 mg/dL (8.6-10.3); Phosphorous 2.7 mg/dL (2.7-4.5); Potassium 4.3 mEq/L (3.5-5.1)
--- NOTE | 2018-11-27 11:52 | Internal Med Progress Note ---
Hospitalist Progress Note - Encounter Date of Encounter: 11/27/18 Time of Encounter: 11:48 - Subjective Interval History: Patient seen and examined earlier today with RN present at bedside. Patient states he was unable to sleep last night but denies any chest pain, shortness of breath this time. He feels tired but states he feels better since his hospitalization. He is noted to be on nasal cannula O2 right now but reports of not being on home oxygen. He states he is having difficulty with arrangement of his meals at home since he lives alone and does not drive. Ten point ROS is negative except as listed above Will obtain psychologist social evaluation for discharge disposition and maximizing home health services. - Exam Vitals: Temp Pulse Resp BP Pulse Ox 97.5 F L 50 16 135/65 98 11/27/18 07:07 11/27/18 07:07 11/27/18 07:25 11/27/18 07:07 11/27/18 07:25 Exam: General: No acute distress, AAO x 3, obese HEENT: EOMI, NC/AT, no scleral icterus Respiratory:equal air entry bilaterally, no wheezing, no rales Cardiovascular: Regular Rhythm, Sinus bradycardia present, No murmurs GI: Soft, Non tender, non distended, normal bowel sounds Ext: No edema, no tenderness, positive pulses Neuro: AAO x 3, no focal deficits Rest of the clinical exam is noncontributory - Summary of Assessment and Plan Summary of Assessment and Plan: Mr. Mann is a 82 year old male with PMH of DM type II, HTN, CHF s/p ICD placement, hypothyroidism, anxiety, peripheral neuropathy, CKD s/p right nephrectomy, carotid stenosis who presented to the [place] [facility] for evaluation of shortness of breath. Assessment/Plan: 1. Acute respiratory distress secondary to LLL PNA continue IV Ceftriaxone and Azithromycin (day 4) bronchodilator support as needed O2 supplementation as needed blood cultures reporting no growth thus far will closely monitor respiratory status titrate off O2 therapy as tolerated to maintain O2 saturation >92% 2. Elevated D-dimer VQ scan negative for PE 3. Chest pain given elevated TNI, pt was started on heparin drip cardiology input appreciated 2D echo reviewed discontinued heparin drip 4. CKD hx of nephrectomy renal function at baseline, will continue to monitor 5. Uncontrolled HTN BP within acceptable range continue current management will closely monitor BP will adjust antihypertensive meds if remains hypertensive 6. Hypothyroidism continue home dose of levothyroxine 7. Anxiety continue home meds 8. CHF reported hx however not on any HF med regimen currently no clinical signs of acute decompensation 9. Alcohol abuse pt denies daily alcohol use will continue Folate and Thiamine supplementation no clinical signs of alcohol withdrawal reported, will continue to closely monitor for signs of alcohol withdrawal 10. DVT ppx: Heparin SQ Care plan discussed with patient/RN - Time Spent with Patient Total time spent is greater than 50% in coordination of care (as documented) at patient's floor/unit and/or counseling patient: 25 - 35 minutes Internal Medicine: Result - Labs CBC & Chem 7: 11/27/18 08:52 11/27/18 08:52 Labs: Short CBC 11/27/18 Range/Units 08:52 WBC 6.1 (4.3-11.1) K/mcL Hgb 13.4 (12.9-16.9) g/dL Hct 43.0 (37.5-50.1) % Plt Count 195 (140-400) K/mcL Neutrophils # 4.2 (1.6-8.9) K/mcL BMP 11/27/18 08:52 Sodium 139 Potassium 4.3 Chloride 99 Carbon Dioxide 37 H BUN 34 H Creatinine 1.45 H Glucose 156 H Calcium 9.8 - ABG Interpretation ABG results: PT/INR, D-dimer PT 10.4 Seconds (9.4-12.1) 11/24/18 16:36 - Impressions Impressions Echocardiogram 11/26/18 15:18 Impressions: LVEF 55%. Normal LV chamber size. Moderate concentric left ventricular hypertrophy. Moderately biatrial enlargement Mild-moderate mitral regurgitation. Mild tricuspid regurgitation. Unable to estimate RVSP due to incomplete TR jet. A device lead was visualized in the right atrium and right ventricle. Left Ventricular Wall Motion: Rest Echo Findings All wall segments showed normal motion. Findings: Study Quality * Technically adequate exam. ECG Findings * Paced rhythm. Left Ventricle * LVEF 55%. Normal LV chamber size. * Moderate concentric left ventricular hypertrophy. * Indeterminate diastolic function. * Atypical septal motion consistent with paced rhythm. * Right Ventricle * The right ventricle is not well evaluated. Left Atrium * Moderately biatrial enlargement Right Atrium * Moderately dilated right atrium. Aortic Valve * Trileaflet aortic valve. * Normal aortic valve structure. * No aortic regurgitation. * No aortic stenosis. Mitral Valve * Mild-moderate mitral regurgitation. * No mitral stenosis. * Normal mitral valve structure. Tricuspid Valve * Mild tricuspid regurgitation. * Unable to estimate RVSP due to incomplete TR jet. * No tricuspid stenosis. * Normal tricuspid valve structure. Pulmonic Valve * Pulmonic valve not well visualized. Aorta * Normally sized aortic root. Pericardium * The pericardium appears normal. IVC * The IVC is dilated. Device lead * A device lead was visualized in the right atrium and right ventricle. Pulmonary Artery * Pulmonary artery not well visualized. Pleural Effusion * Moderate pleural effusion. Consult Discharge Plan - Plan Referrals: NONE,PCP [Primary Care Provider] -
[2018-11-27] MEDS: Azithromycin 500 MG in D5% in Water 250 ML IVPB SCH (16:06)
[2018-11-27] MEDS: Acetaminophen 325 MG TABLET PO PRN (21:30)
[2018-11-28] MEDS: Acetaminophen 325 MG TABLET PO PRN (04:35)
[2018-11-28] MEDS: *HR* Heparin 5,000 UNIT/ML VIAL SQ SCH (06:02)
[2018-11-28 07:15] VITALS: BP 139/66
[2018-11-28] MEDS: cefTRIAXone 1,000 MG in Water for inj. (sterile) 20 ML 10 ML IVP SCH (08:11)
[2018-11-28] MEDS: Thiamine (B-1) 100 MG TABLET PO SCH (08:12)
[2018-11-28] MEDS: hydrALAZINE 25 MG TABLET PO SCH (08:12)
[2018-11-28] MEDS: Cholecalciferol (D-3) 1,000 UNIT TABLET PO SCH (08:12)
[2018-11-28] MEDS: Gabapentin 300 MG CAPSULE PO SCH (08:12)
[2018-11-28] MEDS: hydroCHLOROthiazide 25 MG TABLET PO SCH (08:12)
[2018-11-28] MEDS: Aspirin 81 MG TAB.CHEW PO SCH (08:13)
[2018-11-28] MEDS: diazePAM 5 MG TABLET PO SCH (08:13)
[2018-11-28] MEDS: Folic Acid 1 MG TABLET PO SCH (08:13)
[2018-11-28] MEDS: Metoprolol XL (24 HR) Succ 50 MG TAB.ER.24H PO SCH (08:13)
--- NOTE | 2018-11-28 13:14 | Physician Discharge Referral ---
Home Health/Hosp Referral Info Transfer to: Home Health Provider in Charge Post Discharge: PCP - Diagnosis (1) Acute respiratory distress Priority: Primary Status: Resolved (2) Chest pain Priority: Primary Status: Resolved (3) Elevated troponin I measurement Priority: Secondary Status: Acute (4) Anxiety Priority: Secondary Status: Chronic (5) Community acquired pneumonia Priority: Secondary Status: Acute (6) Chronic kidney disease Priority: Secondary Status: Chronic (7) Hypertension, essential Priority: Secondary Status: Chronic - Respiratory Orders Smoking Cessation: Smoking cessation has been advised. For more information, call the [place] Tobacco Quit Line at 0-842-LQIR-NOW. - Services Needed Following services are medically necessary services: Nursing, Home Health Aide, Physical Therapy, Occupational Therapy - Transfer Medications Home Medications: Aspirin 81 mg PO DAILY 12/09/15 [History] Levothyroxine [Levothyroxine Sodium] 137 mcg PO QAM 12/09/15 [History] Cetirizine HCl [Zyrtec] 10 mg PO DAILY 06/29/17 [History] Cholecalciferol (Vitamin D3) [Vitamin D3] 1,000 unit PO DAILY 06/29/17 [History] diazePAM [Valium] 5 mg PO TID PRN 06/29/17 [History] hydroCHLOROthiazide [Hydrochlorothiazide] 25 mg PO 3XW 06/29/17 [History] Gabapentin [Neurontin] 600 mg PO BID 03/04/18 [History] Psyllium Husk [Metamucil] 660 gm PO BID 03/04/18 [History] Docusate [Colace] 200 mg PO BID 11/24/18 [History] Folic Acid 1 mg PO DAILY 11/24/18 [History] Hydralazine HCl 100 mg PO TID 11/26/18 [History] Metoprolol Succinate 200 mg PO DAILY 11/26/18 [History] Sennosides [Senna] 17.2 mg PO BID PRN 11/26/18 [History] Allergies/Adverse Reactions: Allergy/AdvReac Type Severity Reaction Status Date / Time codeine Allergy See Verified 11/26/18 13:59 Comments sulfamethoxazole Allergy See Verified 11/26/18 13:59 [From Bactrim] Comments trimethoprim [From Bactrim] Allergy See Verified 11/26/18 13:59 Comments levofloxacin [From Levaquin] AdvReac Nausea Verified 11/26/18 13:59 Certification: Further, I certify that my clinical findings support that this patient is homebound (i.e. absences from home require considerable and taxing effort and are for medical reasons or zoroastrianism services or infrequently or short duration when for other reasons) because: Homebound Reason: Patient requires assistance of a person or device to safely leave home Attestation: My signature below is to certify that this patient is under my care and that I, or nurse practitioner, or a physician's medical assistant cardiology working with me, has a [id number] encounter with this patient.
--- NOTE | 2018-11-28 13:16 | Discharge Summary ---
- NOTES TO OUTPATIENT PROVIDER Notes to Outpatient Provider: Pt was admitted for management of PNA and further workup for chest pain. Cardiology evaluated the patient and no inpatient intervention was recommended. Pt finished 5 days of abx therapy. Orders not resulted at time of discharge: Pending orders 11/24/18 15:25 Culture,Blood [BC] Stat Date of Encounter: 11/28/18 Time of Encounter: 10:20 - Discharge Diagnosis (1) Acute respiratory distress Priority: Primary Status: Resolved (2) Chest pain Priority: Secondary Status: Resolved Qualifiers: Qualified Code(s): R07.9 - Chest pain, unspecified (3) Elevated troponin I measurement Priority: Secondary Status: Acute (4) Anxiety Priority: Secondary Status: Chronic (5) Community acquired pneumonia Priority: Secondary Status: Acute Qualifiers: Laterality: unspecified laterality Qualified Code(s): J18.9 - Pneumonia, unspecified organism (6) Chronic kidney disease Priority: Secondary Status: Chronic Qualifiers: Chronic kidney disease stage: stage 3 (moderate) Qualified Code(s): N18.3 - Chronic kidney disease, stage 3 (moderate) (7) Hypertension, essential Priority: Secondary Status: Chronic Hospital course: Mr. Mann is a 82 year old male HTN, CHF s/p ICD placement, hypothyroidism, anxiety, peripheral neuropathy, CKD s/p right nephrectomy, carotid stenosis who presented to the [place] ER for evaluation of shortness of breath. Patient was transferred to [facility] for admission for for community-acquired pneumonia and chest pain. Pt underwent V/Q scan which was negative for acute PE. Patient was noted to have elevated troponins for which he was started on heparin drip and cardiology evaluation was requested. Patient was also started on IV antibiotics for pneumonia. Patient initially required O2 supplementation from which he was slowly titrated off. Patient was noted to have down trending troponins and reported complete resolution of chest pain, and as per cardiology no inpatient intervention was recommended. Cardiology recommended outpatient follow-up. Patient has finished 5 days of antibiotic therapy and underwent walk study for O2 qualification. Patient did not qualify for home O2. Patient reported of living alone and wanted assistance with his meal preparation. product development worker evaluated patient's home care services and found that patient does have assistance with meal preps and services are provided to him 7 days a week. Patient was evaluated by physical therapy and home PT was recommended. Currently patient is saturating well on room air and is medically stable for discharge to home with continuation of home health services. Patient is seen and examined today, and reported significant improvement in his clinical status since hospitalization. He demonstrated understanding of his hospital course and agrees with the discharge Plan. Discharge discussed with: patient, nurse, social work, case management - Time Spent with Patient Total time spent providing and/or coordinating discharge services: 35 minutes Time spent: Greater than 30 minutes - Discharge Medications Prescriptions: Continued Folic Acid 1 mg PO DAILY Docusate [Colace] 200 mg PO BID Hydralazine HCl 100 mg PO TID Metoprolol Succinate 200 mg PO DAILY Sennosides [Senna] 17.2 mg PO BID PRN PRN Reason: Constipation Aspirin 81 mg PO DAILY Levothyroxine [Levothyroxine Sodium] 137 mcg PO QAM diazePAM [Valium] 5 mg PO TID PRN PRN Reason: Anxiety Cholecalciferol (Vitamin D3) [Vitamin D3] 1,000 unit PO DAILY Cetirizine HCl [Zyrtec] 10 mg PO DAILY hydroCHLOROthiazide [Hydrochlorothiazide] 25 mg PO 3XW Gabapentin [Neurontin] 600 mg PO BID Psyllium Husk [Metamucil] 660 gm PO BID Home Medications: Aspirin 81 mg PO DAILY 12/09/15 [History] Levothyroxine [Levothyroxine Sodium] 137 mcg PO QAM 12/09/15 [History] Cetirizine HCl [Zyrtec] 10 mg PO DAILY 06/29/17 [History] Cholecalciferol (Vitamin D3) [Vitamin D3] 1,000 unit PO DAILY 06/29/17 [History] diazePAM [Valium] 5 mg PO TID PRN 06/29/17 [History] hydroCHLOROthiazide [Hydrochlorothiazide] 25 mg PO 3XW 06/29/17 [History] Gabapentin [Neurontin] 600 mg PO BID 03/04/18 [History] Psyllium Husk [Metamucil] 660 gm PO BID 03/04/18 [History] Docusate [Colace] 200 mg PO BID 11/24/18 [History] Folic Acid 1 mg PO DAILY 11/24/18 [History] Hydralazine HCl 100 mg PO TID 11/26/18 [History] Metoprolol Succinate 200 mg PO DAILY 11/26/18 [History] Sennosides [Senna] 17.2 mg PO BID PRN 11/26/18 [History] Allergies/Adverse Reactions: Allergy/AdvReac Type Severity Reaction Status Date / Time codeine Allergy See Verified 11/26/18 13:59 Comments sulfamethoxazole Allergy See Verified 11/26/18 13:59 [From Bactrim] Comments trimethoprim [From Bactrim] Allergy See Verified 11/26/18 13:59 Comments levofloxacin [From Levaquin] AdvReac Nausea Verified 11/26/18 13:59 Date of admission: 11/24/18 14:45 Primary care physician: PCP NONE Consults: 11/24/18 16:09 Consult to Cardiology [CONS] Routine Comment: Consulting Provider: Cardiology Trudy Reason for Consult: elevated TNI Call Completed: No 11/25/18 10:14 Consult to Pastoral Services [CONS] Routine Comment: 11/26/18 08:05 Consult to Physical Therapy [CONS] Routine Comment: Evaluate, develop and implement POC Reason for Consult: evaluation for discharge disposition Does patient have active BEDREST order?: No Is patient medically & hemodynamically stable?: Yes Patient assessed for mobility or mobilized this visit?: Yes Discharging clinician: Angelica Jensen Anticipated date of discharge: 11/28/18 - Constitutional Vitals: Temp Pulse Resp BP Pulse Ox 97.6 F 49 18 139/66 90 11/28/18 07:08 11/28/18 07:08 11/28/18 07:08 11/28/18 07:08 11/28/18 07:08 Exam: General: No acute distress, AAO x 3, obese HEENT: EOMI, NC/AT, no scleral icterus Respiratory:equal air entry bilaterally, no wheezing, no rales Cardiovascular: Regular Rhythm, Sinus bradycardia present, No murmurs GI: Soft, Non tender, non distended, normal bowel sounds Ext: No edema, no tenderness, positive pulses Neuro: AAO x 3, no focal deficits Rest of the clinical exam is noncontributory - Patient Status Disposition: Home Health Service Condition: Good - Discharge Instructions Follow Up With: Adama Terry MD [Partnered Physician] - 12/10/18 2:00 pm ([place] Additional Instructions: 1. Please follow up with your primary care physician within five days after your discharge from the hospital. 2. Please follow up with cardiology within one week after your discharge from the hospital. 3. Please continue all your home medications as prescribed by your primary care physician. 4. Please seek medical help immediately if you have difficulty breathing or if chest pain occurs. - Diet and Activity Activity: as per physical therapy Diet: low fat, low cholesterol, low salt diet
== END 2018-11-28 16:05 | disposition home health service (06) | DRG 139 ==
LOC: 2NENU → SUATTDRO 14:45
PROVIDERS: ADMIT Internal Medicine Nephrology; ATTEND Internal Medicine

== ENCOUNTER 2019-06-30 16:07 | Inpatient (IN) ==
[2019-06-30] MEDS ORDERED: Albuterol 2.5 MG/3 ML NEBULIZER IH PRN (20:45)
[2019-06-30] MEDS ORDERED: Aspirin 325 MG TABLET PO ONE (20:45)
[2019-06-30] MEDS ORDERED: Ondansetron ODT 4 MG TAB.RAPDIS SL PRN (20:45)
[2019-06-30] MEDS ORDERED: Naloxone 0.4 MG/ML INJ IVP PRN (20:45)
[2019-06-30] MEDS ORDERED: Calcium Gluconate 1gm/50mL 1 GM/50 ML BAG IVPB ONE (21:00)
[2019-06-30] MEDS: Gabapentin 300 MG CAPSULE PO SCH (21:44)
[2019-06-30] MEDS: hydrALAZINE 25 MG TABLET PO SCH (21:44)
[2019-06-30] MEDS: Furosemide 40 MG/4 ML VIAL IVP SCH (21:49)
[2019-06-30] MEDS ORDERED: Melatonin 3 MG TABLET PO ONE (22:59)
[2019-06-30 23:18] LABS: Protein/Creatinine Ratio,Urine 1.13 mg/mg (0.00-0.20)
[2019-06-30 23:41] LABS: Amphetamine Screen,Urine Negative ng/mL (Cutoff=1000); Barbiturate Screen,Urine Negative ng/mL (Cutoff=200); Benzodiazepines Screen,Urine Positive ng/mL (Cutoff=200); Cannabinoid Screen,Urine Negative ng/mL (Cutoff = 50); Cocaine Screen,Urine Negative ng/mL (Cutoff= 300); Opiate Screen,Urine Negative ng/mL (Cutoff=300); Phencyclidine Screen,Urine Negative ng/mL (Cutoff=25)
[2019-07-01 03:26] LABS: Basophils % 0.4 %; Eosinophils % 0.2 %; Hematocrit 40.5 % (37.5-50.1); Hemoglobin 12.9 g/dL (12.9-16.9); Immature Granulocytes % 0.5 % (0-4); Lymphocytes # 0.7 K/mcL (0.6-4.6); Lymphocytes % 7.5 %; Mean Corpuscular HGB Conc 31.9 g/dL (31.6-35.5); Mean Corpuscular Hemoglobin 31.5 pg (28.0-33.3); Mean Corpuscular Volume 98.8 fL (83.0-100.0); Mean Platelet Volume 11.2 fL (9.4-12.4); Monocytes # 1.3 K/mcL (0.0-1.3); Monocytes % 13.7 %; Neutrophils # 7.5 K/mcL (1.6-8.9); Platelet Count 174 K/mcL (140-400); Red Cell Distribution Width 14.6 % (11.5-14.5); Segmented Neutrophils % 77.7 %; White Blood Count 9.6 K/mcL (4.3-11.1)
[2019-07-01 03:30] LABS: INR 1.1; Prothrombin Time 12.2 Seconds (9.4-12.1)
[2019-07-01 03:50] LABS: Albumin 3.6 g/dL (3.5-5.7); Albumin/Globulin Ratio 1.3 (1.1-2.2); Bilirubin,Total 0.9 mg/dL (0.3-1.0); Calcium 9.4 mg/dL (8.6-10.3); Chol/HDL Ratio 4.3 (0-4.9); Globulin 2.8 g/dL (2.4-3.5); Phosphorous 3.7 mg/dL (2.7-4.5); Potassium 4.7 mEq/L (3.5-5.1); Total Protein 6.4 g/dL (6.4-8.9)
[2019-07-01 08:58] LABS: Estimated Average Glucose 111 mg/dl
[2019-07-01 09:17] LABS: Troponin I 0.04 ng/mL (< 0.04)
[2019-07-01 09:38] LABS: Calcium 9.1 mg/dL (8.6-10.3); Potassium 4.8 mEq/L (3.5-5.1)
[2019-07-01] MEDS: Furosemide 40 MG/4 ML VIAL IVP SCH ×2 (09:39→17:37)
[2019-07-01] MEDS: Metoprolol XL (24 HR) Succ 50 MG TAB.ER.24H PO SCH (09:39)
[2019-07-01] MEDS: Gabapentin 300 MG CAPSULE PO SCH ×2 (09:39→21:49)
[2019-07-01] MEDS: diazePAM 5 MG TABLET PO PRN ×2 (09:39→17:37)
[2019-07-01] MEDS: hydrALAZINE 25 MG TABLET PO SCH ×3 (09:39→21:48)
[2019-07-01] MEDS: Aspirin 81 MG TAB.CHEW PO SCH (09:40)
[2019-07-01 13:59] LABS: Glucose,Pleural Fluid 123 mg/dL (No Ref Range); LDH,Pleural Fluid 197 Units/L (No Ref Range); Total Protein,Pleural Fluid < 3.0 g/dL
[2019-07-01 13:59] LABS: Glucose,Pleural Fluid 129 mg/dL (No Ref Range); LDH,Pleural Fluid 60 Units/L (No Ref Range); Total Protein,Pleural Fluid < 3.0 g/dL
[2019-07-01] MEDS: Acetaminophen 325 MG TABLET PO PRN ×2 (14:25→21:48)
[2019-07-01] MEDS ORDERED: Perflutren Lipid Microsphere 1.3 ML in 0.9 % Sodium Chloride 8.7 ML IVP ONE (15:18)
[2019-07-01] MEDS: *HR* Heparin 5,000 UNIT/ML VIAL SQ SCH (17:38)
[2019-07-01] MEDS ORDERED: Melatonin 3 MG TABLET PO ONE (21:22)
[2019-07-02] MEDS: diazePAM 5 MG TABLET PO PRN ×2 (02:25→08:59)
[2019-07-02] MEDS: *HR* Heparin 5,000 UNIT/ML VIAL SQ SCH ×2 (05:58→16:40)
[2019-07-02] MEDS: Gabapentin 300 MG CAPSULE PO SCH ×2 (08:48→21:00)
[2019-07-02] MEDS: Metoprolol XL (24 HR) Succ 50 MG TAB.ER.24H PO SCH (08:54)
[2019-07-02] MEDS: Aspirin 81 MG TAB.CHEW PO SCH (08:54)
[2019-07-02] MEDS: Furosemide 40 MG/4 ML VIAL IVP SCH (08:54)
[2019-07-02] MEDS: hydrALAZINE 25 MG TABLET PO SCH ×3 (08:54→20:56)
[2019-07-02] MEDS ORDERED: Melatonin 3 MG TABLET PO PRN (09:22)
[2019-07-02 11:28] LABS: Calcium 9.5 mg/dL (8.6-10.3); Potassium 4.1 mEq/L (3.5-5.1)
[2019-07-02] MEDS: *HR* Labetalol 20 MG/4 ML SYRINGE IVP PRN (12:25)
[2019-07-03 05:17] LABS: Calcium 9.4 mg/dL (8.6-10.3)
[2019-07-03] MEDS: *HR* Heparin 5,000 UNIT/ML VIAL SQ SCH ×2 (05:53→15:22)
[2019-07-03] MEDS: Gabapentin 300 MG CAPSULE PO SCH ×2 (07:19→19:57)
[2019-07-03] MEDS: Aspirin 81 MG TAB.CHEW PO SCH (07:29)
[2019-07-03] MEDS: Metoprolol XL (24 HR) Succ 50 MG TAB.ER.24H PO SCH (07:29)
[2019-07-03] MEDS: diazePAM 5 MG TABLET PO PRN ×2 (07:29→18:21)
[2019-07-03] MEDS: Acetaminophen 325 MG TABLET PO PRN ×3 (07:29→23:04)
[2019-07-03] MEDS: hydrALAZINE 25 MG TABLET PO SCH ×3 (07:29→20:01)
[2019-07-03] MEDS ORDERED: Furosemide 40 MG/4 ML VIAL IVP SCH (09:00)
[2019-07-03] MEDS: Sennosides/Docusate Sodium TABLET PO SCH (20:02)
[2019-07-04] MEDS: *HR* Labetalol 20 MG/4 ML SYRINGE IVP PRN (03:23)
[2019-07-04 04:26] LABS: Basophils # 0.1 K/mcL (0.0-0.2); Basophils % 1.1 %; Eosinophils # 0.1 K/mcL (0.0-0.6); Hematocrit 41.4 % (37.5-50.1); Hemoglobin 13.7 g/dL (12.9-16.9); Immature Granulocytes % 0.4 % (0-4); Lymphocytes # 1.3 K/mcL (0.6-4.6); Lymphocytes % 22.8 %; Mean Corpuscular HGB Conc 33.1 g/dL (31.6-35.5); Mean Corpuscular Hemoglobin 31.2 pg (28.0-33.3); Mean Corpuscular Volume 94.3 fL (83.0-100.0); Mean Platelet Volume 11.3 fL (9.4-12.4); Monocytes % 17.9 %; Neutrophils # 3.1 K/mcL (1.6-8.9); Platelet Count 185 K/mcL (140-400); Red Blood Count 4.39 M/mcL (4.19-5.50); Red Cell Distribution Width 14.2 % (11.5-14.5); Segmented Neutrophils % 55.8 %; White Blood Count 5.5 K/mcL (4.3-11.1)
[2019-07-04 04:46] LABS: Calcium 9.3 mg/dL (8.6-10.3); Magnesium 1.9 mg/dL (1.6-2.6); Potassium 3.5 mEq/L (3.5-5.1)
[2019-07-04 05:00] LABS: Thyroid Stimulating Hormone 9.174 mcIU/mL (0.340-5.600)
[2019-07-04] MEDS: *HR* Heparin 5,000 UNIT/ML VIAL SQ SCH (06:09)
[2019-07-04] MEDS ORDERED: NIFEdipine XL (24 HR) 30 MG TAB.ER.24 PO SCH ×2 (07:45→09:00)
[2019-07-04] MEDS: Gabapentin 300 MG CAPSULE PO SCH (08:20)
[2019-07-04] MEDS: Aspirin 81 MG TAB.CHEW PO SCH (08:35)
[2019-07-04] MEDS: hydrALAZINE 25 MG TABLET PO SCH (08:36)
[2019-07-04] MEDS: Sennosides/Docusate Sodium TABLET PO SCH (08:36)
[2019-07-04] MEDS: diazePAM 5 MG TABLET PO PRN (08:36)
[2019-07-04] MEDS ORDERED: Metoprolol XL (24 HR) Succ 50 MG TAB.ER.24H PO SCH (09:00)
[2019-07-04 12:27] VITALS: BP 105/58
== END 2019-07-04 13:26 | disposition home or self-care (01) | DRG 194 ==
LOC: 2ANU → SUATTDRO 18:11
PROVIDERS: ADMIT Internal Medicine; ATTEND Pharmacist

== ENCOUNTER 2019-07-16 19:20 | Inpatient (IN) ==
[2019-07-16] MEDS ORDERED: Naloxone 0.4 MG/ML INJ IVP PRN ×2 (22:26→23:16)
[2019-07-16] MEDS ORDERED: Sennosides 8.6 MG TABLET PO PRN (22:38)
[2019-07-16] MEDS ORDERED: D5% in Water 1,000 ML IVC PRN (23:54)
[2019-07-16] MEDS ORDERED: Dextrose Gel 15 GM/37.5 ML TUBE PO PRN ×2 (23:54)
[2019-07-16] MEDS ORDERED: Furosemide 40 MG/4 ML VIAL IVP ONE (23:54)
[2019-07-16] MEDS ORDERED: *HR* Dextrose 50 % in Water (Syg) 50 ML SYRINGE IVP PRN (23:54)
[2019-07-17] MEDS: Acetaminophen 325 MG TABLET PO PRN ×2 (01:20→21:01)
[2019-07-17] MEDS: Melatonin 3 MG TABLET PO SCH ×2 (01:21→21:02)
[2019-07-17 02:03] LABS: Hematocrit 46.7 % (37.5-50.1); Hemoglobin 14.7 g/dL (12.9-16.9); Mean Corpuscular HGB Conc 31.5 g/dL (31.6-35.5); Mean Corpuscular Hemoglobin 30.8 pg (28.0-33.3); Mean Corpuscular Volume 97.7 fL (83.0-100.0); Mean Platelet Volume 10.3 fL (9.4-12.4); Platelet Count 333 K/mcL (140-400); Red Blood Count 4.78 M/mcL (4.19-5.50); White Blood Count 11.5 K/mcL (4.3-11.1)
[2019-07-17 02:14] LABS: Calcium 9.5 mg/dL (8.6-10.3); Potassium 5.6 mEq/L (3.5-5.1)
[2019-07-17] MEDS ORDERED: Acetylcysteine 10% 2 ML INHSOL IH PRN (04:31)
[2019-07-17] MEDS ORDERED: Calcium Gluconate 1gm/50mL 1 GM/50 ML BAG IVPB ONE (04:33)
[2019-07-17] MEDS ORDERED: 0.9 % Sodium Chloride 1,000 ML IV ONE (04:39)
[2019-07-17] MEDS: *HR* Heparin 5,000 UNIT/ML VIAL SQ SCH ×2 (05:29→16:54)
[2019-07-17] MEDS: hydrALAZINE 25 MG TABLET PO SCH ×3 (09:19→21:02)
[2019-07-17] MEDS: Gabapentin 300 MG CAPSULE PO SCH ×2 (09:19→21:01)
[2019-07-17] MEDS: Aspirin 81 MG TAB.CHEW PO SCH (09:19)
[2019-07-17] MEDS: Metoprolol XL (24 HR) Succ 50 MG TAB.ER.24H PO SCH (09:19)
[2019-07-17] MEDS: NIFEdipine XL (24 HR) 30 MG TAB.ER.24 PO SCH (09:19)
[2019-07-17] MEDS: Insulin LISPRO 300 UNITS/3 ML VIAL SQ SCH ×4 (09:20→21:26)
[2019-07-17 09:21] LABS: INR 1.2; Prothrombin Time 13.2 Seconds (9.4-12.1)
[2019-07-17 13:54] LABS: BUN/Creatinine Ratio 19 (6-26); Bilirubin,Total 0.6 mg/dL (0.3-1.0); Blood Urea Nitrogen 39 mg/dL (8-23); Calcium 8.9 mg/dL (8.6-10.3); Carbon Dioxide 29 mEq/L (23-29); Chloride 102 mEq/L (98-107); Cholesterol 132 mg/dL (< 200); Glucose 137 mg/dL (70-105); Lactate Dehydrogenase 157 Units/L (140-271); Osmolality,Calculated 296 (280-300); Potassium 5.2 mEq/L (3.5-5.1); Sodium 137 mEq/L (136-145); Total Protein 6.2 g/dL (6.4-8.9); eGFR For African Americans 37 (> 60); eGFR For Non-African Americans 31 (> 60)
[2019-07-17 18:35] LABS: Amylase,Pleural Fluid 22 Units/L (No Ref Range); Glucose,Pleural Fluid 128 mg/dL (No Ref Range); LDH,Pleural Fluid 57 Units/L (No Ref Range); Total Protein,Pleural Fluid < 3.0 g/dL
[2019-07-17 20:39] LABS: Basophils,Pleural Fluid 0 %; Eosinophils,Pleural Fluid 0 %
[2019-07-17 20:40] LABS: Appearance of Pleural Fl Hazy (Clear)
[2019-07-17] MEDS ORDERED: Melatonin 3 MG TABLET PO SCH (21:00)
[2019-07-18 02:22] LABS: Basophils % 0.5 %; Eosinophils # 0.1 K/mcL (0.0-0.6); Eosinophils % 0.7 %; Hematocrit 41.3 % (37.5-50.1); Immature Granulocytes % 0.9 % (0-4); Lymphocytes # 0.6 K/mcL (0.6-4.6); Lymphocytes % 7.3 %; Mean Corpuscular Hemoglobin 30.8 pg (28.0-33.3); Mean Corpuscular Volume 99.5 fL (83.0-100.0); Mean Platelet Volume 10.6 fL (9.4-12.4); Monocytes # 0.9 K/mcL (0.0-1.3); Monocytes % 10.8 %; Platelet Count 294 K/mcL (140-400); Red Blood Count 4.15 M/mcL (4.19-5.50); Segmented Neutrophils % 79.8 %; White Blood Count 8.7 K/mcL (4.3-11.1)
[2019-07-18 02:24] LABS: Hemoglobin 12.8 g/dL (12.9-16.9)
[2019-07-18 02:43] LABS: Calcium 8.9 mg/dL (8.6-10.3); Potassium 4.9 mEq/L (3.5-5.1)
[2019-07-18] MEDS: *HR* Heparin 5,000 UNIT/ML VIAL SQ SCH ×2 (05:27→18:22)
[2019-07-18] MEDS: NIFEdipine XL (24 HR) 30 MG TAB.ER.24 PO SCH (08:16)
[2019-07-18] MEDS: diazePAM 5 MG TABLET PO PRN (08:16)
[2019-07-18] MEDS: hydrALAZINE 25 MG TABLET PO SCH (08:16)
[2019-07-18] MEDS: Gabapentin 300 MG CAPSULE PO SCH ×2 (08:16→22:08)
[2019-07-18] MEDS: Aspirin 81 MG TAB.CHEW PO SCH (08:16)
[2019-07-18] MEDS: Metoprolol XL (24 HR) Succ 50 MG TAB.ER.24H PO SCH (08:17)
[2019-07-18] MEDS: Insulin LISPRO 300 UNITS/3 ML VIAL SQ SCH ×4 (08:17→22:11)
[2019-07-18] MEDS ORDERED: Albumin 25% 12.5gm/50mL 12.5 GM/50 ML IV.SOLN IVPB ONE (18:14)
[2019-07-18] MEDS ORDERED: Furosemide 40 MG/4 ML VIAL IVP SCH (19:15)
[2019-07-18] MEDS: Melatonin 3 MG TABLET PO SCH (22:11)
[2019-07-19] MEDS: *HR* Heparin 5,000 UNIT/ML VIAL SQ SCH ×2 (06:13→18:28)
[2019-07-19] MEDS: Insulin LISPRO 300 UNITS/3 ML VIAL SQ SCH ×4 (08:52→20:41)
[2019-07-19] MEDS: Gabapentin 300 MG CAPSULE PO SCH ×2 (09:08→20:50)
[2019-07-19] MEDS: Metoprolol XL (24 HR) Succ 50 MG TAB.ER.24H PO SCH (09:08)
[2019-07-19] MEDS: Isosorbide MONOnitrate (24 HR) 30 MG TAB.ER.24H PO SCH (09:08)
[2019-07-19] MEDS: Aspirin 81 MG TAB.CHEW PO SCH (09:08)
[2019-07-19 09:51] LABS: Basophils % 0.6 %; Eosinophils # 0.1 K/mcL (0.0-0.6); Eosinophils % 1.2 %; Hematocrit 36.8 % (37.5-50.1); Hemoglobin 11.7 g/dL (12.9-16.9); Immature Granulocytes % 0.6 % (0-4); Lymphocytes # 0.6 K/mcL (0.6-4.6); Lymphocytes % 8.3 %; Mean Corpuscular HGB Conc 31.8 g/dL (31.6-35.5); Mean Corpuscular Hemoglobin 31.5 pg (28.0-33.3); Mean Corpuscular Volume 98.9 fL (83.0-100.0); Mean Platelet Volume 10.9 fL (9.4-12.4); Monocytes # 0.8 K/mcL (0.0-1.3); Monocytes % 12.2 %; Neutrophils # 5.1 K/mcL (1.6-8.9); Platelet Count 219 K/mcL (140-400); Red Blood Count 3.72 M/mcL (4.19-5.50); Red Cell Distribution Width 13.7 % (11.5-14.5); Segmented Neutrophils % 77.1 %; White Blood Count 6.7 K/mcL (4.3-11.1)
[2019-07-19 10:13] LABS: Calcium 8.8 mg/dL (8.6-10.3); Phosphorous 2.8 mg/dL (2.7-4.5); Potassium 4.1 mEq/L (3.5-5.1)
[2019-07-19] MEDS ORDERED: Albumin 25% 12.5gm/50mL 12.5 GM/50 ML IV.SOLN IVPB ONE (11:32)
[2019-07-19] MEDS ORDERED: Furosemide 40 MG/4 ML VIAL IVP ONE (11:32)
[2019-07-20] MEDS: Melatonin 3 MG TABLET PO SCH ×2 (00:35→21:09)
[2019-07-20 05:25] LABS: Basophils % 0.7 %; Eosinophils # 0.1 K/mcL (0.0-0.6); Eosinophils % 1.2 %; Hematocrit 37.7 % (37.5-50.1); Hemoglobin 12.1 g/dL (12.9-16.9); Immature Granulocytes % 0.5 % (0-4); Lymphocytes # 0.7 K/mcL (0.6-4.6); Lymphocytes % 11.8 %; Mean Corpuscular HGB Conc 32.1 g/dL (31.6-35.5); Mean Corpuscular Hemoglobin 30.8 pg (28.0-33.3); Mean Corpuscular Volume 95.9 fL (83.0-100.0); Mean Platelet Volume 10.9 fL (9.4-12.4); Monocytes # 0.9 K/mcL (0.0-1.3); Monocytes % 14.5 %; Neutrophils # 4.3 K/mcL (1.6-8.9); Platelet Count 258 K/mcL (140-400); Red Blood Count 3.93 M/mcL (4.19-5.50); Red Cell Distribution Width 13.5 % (11.5-14.5); Segmented Neutrophils % 71.3 %
[2019-07-20 05:38] LABS: Albumin 3.5 g/dL (3.5-5.7); Albumin/Globulin Ratio 1.2 (1.1-2.2); Bilirubin,Total 0.9 mg/dL (0.3-1.0); Calcium 9.2 mg/dL (8.6-10.3); Globulin 2.9 g/dL (2.4-3.5); Potassium 4.1 mEq/L (3.5-5.1); Total Protein 6.4 g/dL (6.4-8.9)
[2019-07-20] MEDS: *HR* Heparin 5,000 UNIT/ML VIAL SQ SCH ×2 (05:54→17:31)
[2019-07-20] MEDS: Insulin LISPRO 300 UNITS/3 ML VIAL SQ SCH ×4 (08:56→21:04)
[2019-07-20] MEDS: Aspirin 81 MG TAB.CHEW PO SCH (09:01)
[2019-07-20] MEDS: Gabapentin 300 MG CAPSULE PO SCH ×2 (09:01→21:09)
[2019-07-20] MEDS: Isosorbide MONOnitrate (24 HR) 30 MG TAB.ER.24H PO SCH (09:01)
[2019-07-20] MEDS ORDERED: Albumin 25% 12.5gm/50mL 12.5 GM/50 ML IV.SOLN IVPB ONE (10:23)
[2019-07-20] MEDS ORDERED: Furosemide 40 MG/4 ML VIAL IVP ONE (11:00)
[2019-07-20] MEDS ORDERED: Saline Nasal Spray 44 ML BOTTLE NS PRN (11:39)
[2019-07-20] MEDS: Metoprolol XL (24 HR) Succ 50 MG TAB.ER.24H PO SCH (11:42)
[2019-07-21 03:36] LABS: Hematocrit 34.1 % (37.5-50.1); Hemoglobin 11.3 g/dL (12.9-16.9); Mean Corpuscular HGB Conc 33.1 g/dL (31.6-35.5); Mean Corpuscular Hemoglobin 30.9 pg (28.0-33.3); Mean Corpuscular Volume 93.2 fL (83.0-100.0); Mean Platelet Volume 10.7 fL (9.4-12.4); Platelet Count 245 K/mcL (140-400); Red Blood Count 3.66 M/mcL (4.19-5.50); Red Cell Distribution Width 13.2 % (11.5-14.5); White Blood Count 5.5 K/mcL (4.3-11.1)
[2019-07-21 03:58] LABS: Magnesium 1.6 mg/dL (1.6-2.6); Phosphorous 1.9 mg/dL (2.7-4.5); Potassium 3.6 mEq/L (3.5-5.1)
[2019-07-21] MEDS: *HR* Heparin 5,000 UNIT/ML VIAL SQ SCH ×2 (05:24→17:40)
[2019-07-21] MEDS: Acetaminophen 325 MG TABLET PO PRN ×2 (05:33→23:29)
[2019-07-21] MEDS: Aspirin 81 MG TAB.CHEW PO SCH (09:42)
[2019-07-21] MEDS: Isosorbide MONOnitrate (24 HR) 30 MG TAB.ER.24H PO SCH (09:42)
[2019-07-21] MEDS: Metoprolol XL (24 HR) Succ 50 MG TAB.ER.24H PO SCH (09:42)
[2019-07-21] MEDS: Insulin LISPRO 300 UNITS/3 ML VIAL SQ SCH ×4 (09:42→20:55)
[2019-07-21] MEDS: Gabapentin 300 MG CAPSULE PO SCH ×2 (09:42→20:46)
[2019-07-21] MEDS: diazePAM 5 MG TABLET PO PRN ×2 (10:07→20:48)
[2019-07-21] MEDS: Melatonin 3 MG TABLET PO SCH (20:48)
[2019-07-22 05:16] LABS: Calcium 8.8 mg/dL (8.6-10.3); Magnesium 1.7 mg/dL (1.6-2.6); Potassium 4.4 mEq/L (3.5-5.1)
[2019-07-22] MEDS: *HR* Heparin 5,000 UNIT/ML VIAL SQ SCH ×2 (05:45→18:26)
[2019-07-22] MEDS: Insulin LISPRO 300 UNITS/3 ML VIAL SQ SCH ×4 (07:28→21:31)
[2019-07-22] MEDS: Isosorbide MONOnitrate (24 HR) 30 MG TAB.ER.24H PO SCH (09:30)
[2019-07-22] MEDS: Aspirin 81 MG TAB.CHEW PO SCH (09:30)
[2019-07-22] MEDS: Gabapentin 300 MG CAPSULE PO SCH ×2 (09:30→23:02)
[2019-07-22] MEDS: Metoprolol XL (24 HR) Succ 50 MG TAB.ER.24H PO SCH (09:30)
[2019-07-22] MEDS: diazePAM 5 MG TABLET PO PRN ×3 (09:38→23:00)
[2019-07-22] MEDS: Furosemide 40 MG TABLET PO SCH (12:13)
[2019-07-22] MEDS ORDERED: Artificial Tears SOLN 15 ML BOTTLE BOTH EYES PRN (18:37)
[2019-07-22] MEDS: Melatonin 3 MG TABLET PO SCH (23:00)
[2019-07-22] MEDS: Acetaminophen 325 MG TABLET PO PRN (23:00)
[2019-07-23 05:21] LABS: Calcium 8.8 mg/dL (8.6-10.3)
[2019-07-23] MEDS: *HR* Heparin 5,000 UNIT/ML VIAL SQ SCH (06:48)
[2019-07-23] MEDS: Insulin LISPRO 300 UNITS/3 ML VIAL SQ SCH ×3 (08:35→15:54)
[2019-07-23] MEDS: Metoprolol XL (24 HR) Succ 50 MG TAB.ER.24H PO SCH (08:42)
[2019-07-23] MEDS: Aspirin 81 MG TAB.CHEW PO SCH (08:43)
[2019-07-23] MEDS: Gabapentin 300 MG CAPSULE PO SCH (08:43)
[2019-07-23] MEDS: Furosemide 40 MG TABLET PO SCH (08:43)
[2019-07-23] MEDS ORDERED: Isosorbide MONOnitrate (24 HR) 60 MG TAB.ER.24H PO SCH (09:00)
[2019-07-23 11:42] VITALS: BP 132/63
[2019-07-23] MEDS: diazePAM 5 MG TABLET PO PRN (15:51)
== END 2019-07-23 18:29 | DRG 194 ==
LOC: 2NENU → SUATTDRO 21:17
PROVIDERS: ADMIT Student in an Organized Health Care Education/Training Program; ATTEND Internal Medicine

== ENCOUNTER 2021-05-27 21:21 | Inpatient (IN) ==
[2021-05-28] MEDS ORDERED: Acetaminophen 325 MG TABLET PO PRN (00:03)
[2021-05-28] MEDS ORDERED: *HR* Promethazine 25 MG/ML VIAL IM PRN (00:03)
[2021-05-28] MEDS ORDERED: *HR* HYDROcodone/Acet 5/325 mg TABLET PO PRN (00:03)
[2021-05-28] MEDS ORDERED: Melatonin 3 MG TABLET PO PRN (00:03)
[2021-05-28] MEDS ORDERED: Naloxone 0.4 MG/ML INJ IVP PRN (00:03)
[2021-05-28] MEDS ORDERED: Ondansetron 4 MG/2 ML VIAL IVP PRN (00:03)
[2021-05-28] MEDS ORDERED: Dextrose Gel 15 GM/37.5 ML TUBE PO PRN ×2 (00:09)
[2021-05-28] MEDS ORDERED: D5% in Water 1,000 ML IVC PRN (00:09)
[2021-05-28] MEDS ORDERED: *HR* Dextrose 50 % in Water (Syg) 50 ML SYRINGE IVP PRN (00:09)
[2021-05-28] MEDS ORDERED: *HR* Labetalol 20 MG/4 ML SYRINGE IVP PRN (00:11)
[2021-05-28] MEDS ORDERED: Ringers Solution, Lactated 1,000 ML IVC SCH (00:15)
[2021-05-28] MEDS ORDERED: *HR* Etomidate 20 MG/10 ML AMPUL IVP ONE (00:24)
[2021-05-28 00:46] LABS: Basophils % 0.2 %; Hematocrit 38.8 % (37.5-50.1); Hemoglobin 11.8 g/dL (12.9-16.9); INR 1.7; Immature Granulocytes % 0.7 % (0-4); Immature Platelets 10.2 % (1.1-6.1); Lymphocytes # 0.8 K/mcL (0.6-4.6); Lymphocytes % 4.5 %; Mean Corpuscular HGB Conc 30.4 g/dL (31.6-35.5); Mean Corpuscular Hemoglobin 31.6 pg (28.0-33.3); Mean Corpuscular Volume 103.7 fL (83.0-100.0); Mean Platelet Volume 12.5 fL (9.4-12.4); Monocytes # 1.5 K/mcL (0.0-1.3); Monocytes % 8.9 %; Neutrophils # 14.4 K/mcL (1.6-8.9); Platelet Count 122 K/mcL (140-400); Prothrombin Time 19.2 Seconds (9.4-12.1); Red Blood Count 3.74 M/mcL (4.19-5.50); Red Cell Distribution Width 14.5 % (11.5-14.5); Segmented Neutrophils % 85.7 %; White Blood Count 16.8 K/mcL (4.3-11.1)
[2021-05-28 00:57] LABS: Albumin 3.6 g/dL (3.5-5.7); Albumin/Globulin Ratio 1.2 (1.1-2.2); Alkaline Phosphatase 60 Units/L (34-104); BUN/Creatinine Ratio 17 (6-26); Blood Urea Nitrogen 69 mg/dL (8-23); Calcium 8.6 mg/dL (8.6-10.3); Carbon Dioxide 20 mEq/L (23-29); Chloride 102 mEq/L (98-107); Glucose 173 mg/dL (70-105); Magnesium 3.2 mg/dL (1.6-2.6); Osmolality,Calculated 306 (280-300); Potassium 5.5 mEq/L (3.5-5.1); Sodium 136 mEq/L (136-145); Total Protein 6.6 g/dL (6.4-8.9); Troponin I 0.27 ng/mL (< 0.04); eGFR For African Americans 17 (> 60); eGFR For Non-African Americans 14 (> 60)
[2021-05-28] MEDS ORDERED: Insulin Human Regular 10 UNIT in 0.9 % Sodium Chloride 10 ML IV ONE (00:59)
[2021-05-28] MEDS ORDERED: *HR* Dextrose 50 % in Water (Syg) 50 ML SYRINGE IVP ONE (00:59)
[2021-05-28] MEDS ORDERED: levoFLOXacin 750 MG/150 ML 750 MG/150 ML BAG IVPB SCH (01:00)
[2021-05-28 01:13] LABS: Large Platelets Present (Not Present); Platelet Estimate Normal (Normal)
[2021-05-28] MEDS: cloNIDine HCL 0.1 MG TABLET PO SCH ×3 (01:39→14:13)
[2021-05-28] MEDS ORDERED: Perflutren Lipid Microsphere 1.3 ML in 0.9 % Sodium Chloride 8.7 ML IVP PRN (01:40)
[2021-05-28] MEDS: *HR* Dextrose 50 % in Water (Vial) 50 ML VIAL IVP PRN (01:53)
[2021-05-28 02:07] LABS: Alanine Aminotransferase > 5000 Units/L (7-52); Aspartate Amino Transferase > 3000 Units/L (13-39); Creatine Kinase 14797 Units/L (30-223)
[2021-05-28] MEDS: Lactulose Oral Soln 20 GM/30 ML UDC PO SCH ×3 (02:55→20:13)
[2021-05-28 03:01] LABS: Hepatitis B Surface Antigen Nonreactive (Nonreactive)
[2021-05-28 03:30] LABS: Hepatitis C Virus Antibody Nonreactive (Nonreactive)
[2021-05-28 03:31] LABS: Hepatitis B Core IgM Nonreactive (Nonreactive)
[2021-05-28 03:32] LABS: Hepatitis A Antibody IgM Nonreactive (Nonreactive)
[2021-05-28] MEDS: Insulin LISPRO 300 UNITS/3 ML VIAL SUBQ SCH ×4 (04:57→23:52)
[2021-05-28] MEDS: hydrALAZINE 25 MG TABLET PO SCH ×2 (04:58→11:56)
[2021-05-28] MEDS: *HR* Heparin 5,000 UNIT/ML VIAL SQ SCH ×3 (04:58→21:57)
[2021-05-28] MEDS ORDERED: 0.9 % Sodium Chloride 500 ML IVC ONE (08:18)
[2021-05-28] MEDS: 0.9 % Sodium Chloride 1,000 ML IVC SCH ×3 (09:33→22:04)
[2021-05-28 10:21] LABS: Alanine Aminotransferase 2666 Units/L (7-52); Albumin 3.5 g/dL (3.5-5.7); Albumin/Globulin Ratio 1.1 (1.1-2.2); Alkaline Phosphatase 64 Units/L (34-104); Aspartate Amino Transferase > 3000 Units/L (13-39); BUN/Creatinine Ratio 17 (6-26); Blood Urea Nitrogen 77 mg/dL (8-23); Calcium 8.5 mg/dL (8.6-10.3); Carbon Dioxide 19 mEq/L (23-29); Chloride 102 mEq/L (98-107); Globulin 3.1 g/dL (2.4-3.5); Glucose 138 mg/dL (70-105); Osmolality,Calculated 307 (280-300); Sodium 136 mEq/L (136-145); Total Protein 6.6 g/dL (6.4-8.9); Troponin I 0.33 ng/mL (< 0.04); eGFR For African Americans 15 (> 60); eGFR For Non-African Americans 12 (> 60)
[2021-05-28] MEDS: Aspirin 81 MG TAB.CHEW PO SCH (10:32)
[2021-05-28] MEDS ORDERED: Heparin 1,000 UNITS/500 mL 500 ML ONE (10:35)
[2021-05-28] MEDS ORDERED: *HR* Heparin 5,000 UNIT/ML VIAL ONE (10:36)
[2021-05-28 11:02] LABS: Hepatitis B Surface Antibody < 3.10 mIU/mL
[2021-05-28] MEDS ORDERED: *HR* Heparin 10,000 UNIT/10 ML VIAL IV PRN (11:07)
[2021-05-28] MEDS ORDERED: 0.9 % Sodium Chloride 250 ML IVC PRN (11:07)
[2021-05-28 11:13] LABS: Hepatitis B Surface Antigen Nonreactive (Nonreactive)
[2021-05-28] MEDS ORDERED: 0.9 % Sodium Chloride 1,000 ML PRIME SCH (11:15)
[2021-05-28 11:42] LABS: Hepatitis B Core IgM Nonreactive (Nonreactive)
[2021-05-28] MEDS ORDERED: 0.9 % Sodium Chloride 1,000 ML PRIME ONE ×2 (14:37)
[2021-05-28] MEDS ORDERED: *HR* Heparin 5,000 UNIT/ML VIAL IVP PRN (14:37)
[2021-05-28] MEDS ORDERED: *HR* Alteplase (Cathflo) 2 MG VIAL IVP PRN (14:37)
[2021-05-28] MEDS ORDERED: Artificial Tears SOLN 15 ML BOTTLE BOTH EYES PRN (15:04)
[2021-05-28 15:12] LABS: ABG Base Excess -8 mEq/L (-2 to 3); ABG HCO3 22 mEq/L (21-27); ABG Oxygen Saturation 94 % (95-98); ABG PCO2 74 mmHg (35-45); ABG PH 7.09 pH Units (7.32-7.45); ABG PO2 100 mmHg (85-104); ABG TCO2 25 mEq/L (20-26); Blood Gas Modality ASSIST CONTROL; Blood Gas VT 450 cc
[2021-05-28] MEDS ORDERED: Calcium Gluconate 1gm/50mL IVPB ONE (15:15)
[2021-05-28] MEDS: FentaNYL (PF) 1,000 MCG/100 ML IV.SOLN IVC SCH (16:27)
[2021-05-28] MEDS: Midazolam HCl 50 MG/100 ML IV.SOLN IVC SCH (16:27)
[2021-05-28 16:58] LABS: VBG Ionized Calcium 1.05 mmol/L (1.15-1.35)
[2021-05-28] MEDS ORDERED: D5 IVC ONE ×2 (17:00→18:00)
[2021-05-28] MEDS ORDERED: ACETYLCYSTEINE IVC ONE ×2 (17:00→18:00)
[2021-05-28] MEDS ORDERED: WATER IVC ONE ×2 (17:00→18:00)
[2021-05-28] MEDS: Artificial Tears SOLN 15 ML BOTTLE BOTH EYES SCH ×3 (17:03→23:48)
[2021-05-28 17:07] LABS: INR 1.8; Prothrombin Time 20.3 Seconds (9.4-12.1)
[2021-05-28 17:17] LABS: Albumin 3.2 g/dL (3.5-5.7); Calcium 8.2 mg/dL (8.6-10.3); Magnesium 3.5 mg/dL (1.6-2.6); Phosphorous 9.1 mg/dL (2.7-4.5); Potassium 6.1 mEq/L (3.5-5.1)
[2021-05-28 17:44] LABS: Troponin I 0.21 ng/mL (< 0.04)
[2021-05-28 17:48] LABS: Hematocrit 36.6 % (37.5-50.1); Hemoglobin 11.2 g/dL (12.9-16.9); Mean Corpuscular HGB Conc 30.6 g/dL (31.6-35.5); Mean Corpuscular Hemoglobin 31.4 pg (28.0-33.3); Mean Corpuscular Volume 102.5 fL (83.0-100.0); Platelet Count 108 K/mcL (140-400); Red Blood Count 3.57 M/mcL (4.19-5.50); Red Cell Distribution Width 14.6 % (11.5-14.5); White Blood Count 9.8 K/mcL (4.3-11.1)
[2021-05-28] MEDS: Sodium Bicarbonate 150 MEQ in D5% in Water 1,000 ML IVC SCH (17:57)
[2021-05-28] MEDS: Norepinephrine 4 MG/254 ML IV.SOLN IVC SCH ×2 (17:58→23:48)
[2021-05-28 18:06] LABS: Lymphocytes # 0.8 K/mcL (0.6-4.6); Monocytes # 0.8 K/mcL (0.0-1.3); Platelet Estimate Slight Decrease (Normal)
[2021-05-28] MEDS: PrismaSATE BGK 4/2.5 5,000 ML CRRT SCH ×4 (18:24→21:49)
[2021-05-28] MEDS: Piperacillin/Tazobactam 3.375 GM in 0.9 % Sodium Chloride Mini Bag 100 ML IVPB SCH (18:42)
[2021-05-28] MEDS: Chlorhexidine Rinse 15 ML MOUTHWASH MM SCH (20:13)
[2021-05-28] MEDS: Ipratropium/Albuterol Neb 3 ML IH SCH ×2 (20:36→20:53)
[2021-05-28] MEDS ORDERED: Insulin DETEMIR 100 UNIT/ML X5UNITS SUBQ SCH (21:00)
[2021-05-28 21:18] LABS: Calcium 7.3 mg/dL (8.6-10.3); Potassium 5.3 mEq/L (3.5-5.1)
[2021-05-28] MEDS ORDERED: D5 IVC SCH (22:00)
[2021-05-28] MEDS ORDERED: ACETYLCYSTEINE IVC SCH (22:00)
[2021-05-28] MEDS ORDERED: WATER IVC SCH (22:00)
[2021-05-28 22:04] LABS: ABG Base Excess -8 mEq/L (-2 to 3); ABG HCO3 17 mEq/L (21-27); ABG Oxygen Saturation 94 % (95-98); ABG PCO2 33 mmHg (35-45); ABG PH 7.33 pH Units (7.32-7.45); ABG PO2 76 mmHg (85-104); ABG TCO2 18 mEq/L (20-26); Blood Gas VT 450 cc
[2021-05-29] MEDS: PrismaSATE BGK 4/2.5 5,000 ML CRRT SCH ×8 (01:08→21:17)
[2021-05-29] MEDS: FentaNYL (PF) 1,000 MCG/100 ML IV.SOLN IVC SCH ×3 (01:20→22:25)
[2021-05-29] MEDS: Artificial Tears SOLN 15 ML BOTTLE BOTH EYES SCH ×6 (04:05→23:42)
[2021-05-29] MEDS: Ipratropium/Albuterol Neb 3 ML IH SCH ×4 (04:14→20:40)
[2021-05-29 04:52] LABS: Hematocrit 38.3 % (37.5-50.1); Red Cell Distribution Width 14.6 % (11.5-14.5)
[2021-05-29 04:52] LABS: VBG Ionized Calcium 0.99 mmol/L (1.15-1.35)
[2021-05-29 04:54] LABS: Basophils # 0.1 K/mcL (0.0-0.2); Basophils % 0.6 %; Eosinophils # 0.1 K/mcL (0.0-0.6); Hemoglobin 12.2 g/dL (12.9-16.9); Immature Platelets 11.9 % (1.1-6.1); Lymphocytes # 0.6 K/mcL (0.6-4.6); Mean Corpuscular HGB Conc 31.9 g/dL (31.6-35.5); Mean Corpuscular Hemoglobin 31.3 pg (28.0-33.3); Mean Corpuscular Volume 98.2 fL (83.0-100.0); Mean Platelet Volume 12.1 fL (9.4-12.4); Monocytes # 0.4 K/mcL (0.0-1.3); Neutrophils # 7.2 K/mcL (1.6-8.9); Platelet Count 121 K/mcL (140-400); Segmented Neutrophils % 85.4 %; White Blood Count 8.4 K/mcL (4.3-11.1)
[2021-05-29] MEDS: 0.9 % Sodium Chloride 1,000 ML IVC SCH ×3 (05:06→23:43)
[2021-05-29 05:10] LABS: Platelet Estimate Normal (Normal)
[2021-05-29 05:20] LABS: ABG Base Excess -4 mEq/L (-2 to 3); ABG HCO3 20 mEq/L (21-27); ABG Oxygen Saturation 92 % (95-98); ABG PCO2 32 mmHg (35-45); ABG PH 7.41 pH Units (7.32-7.45); ABG PO2 64 mmHg (85-104); ABG TCO2 21 mEq/L (20-26); Blood Gas VT 450 cc
[2021-05-29 05:48] LABS: Albumin 2.7 g/dL (3.5-5.7); Albumin/Globulin Ratio 1.1 (1.1-2.2); Bilirubin,Total 2.3 mg/dL (0.3-1.0); Calcium 7.3 mg/dL (8.6-10.3); Globulin 2.5 g/dL (2.4-3.5); Phosphorous 3.3 mg/dL (2.7-4.5); Potassium 4.8 mEq/L (3.5-5.1); Total Protein 5.2 g/dL (6.4-8.9); Uric Acid 5.5 mg/dL (2.3-7.6)
[2021-05-29] MEDS: *HR* Heparin 5,000 UNIT/ML VIAL SQ SCH ×3 (06:01→23:10)
[2021-05-29 06:02] LABS: Vitamin B12 > 1500 pg/mL (250-1100); Vitamin D 25 Hydroxy 50 ng/mL (30-80)
[2021-05-29] MEDS: Insulin LISPRO 300 UNITS/3 ML VIAL SUBQ SCH ×4 (06:04→23:42)
[2021-05-29] MEDS: Midazolam HCl 50 MG/100 ML IV.SOLN IVC SCH (06:05)
[2021-05-29] MEDS: Piperacillin/Tazobactam 3.375 GM in 0.9 % Sodium Chloride Mini Bag 100 ML IVPB SCH ×2 (06:57→19:13)
[2021-05-29] MEDS: Sodium Bicarbonate 150 MEQ in D5% in Water 1,000 ML IVC SCH ×2 (07:15→20:05)
[2021-05-29] MEDS: Aspirin 81 MG TAB.CHEW PO SCH (09:38)
[2021-05-29] MEDS: Chlorhexidine Rinse 15 ML MOUTHWASH MM SCH ×2 (09:38→19:37)
[2021-05-29] MEDS: Lactulose Oral Soln 20 GM/30 ML UDC PO SCH ×2 (09:38→19:37)
[2021-05-29 10:12] LABS: INR 1.9; Prothrombin Time 21.6 Seconds (9.4-12.1)
[2021-05-29 10:21] LABS: Calcium 7.5 mg/dL (8.6-10.3); Potassium 4.3 mEq/L (3.5-5.1)
[2021-05-29] MEDS: Norepinephrine 4 MG/254 ML IV.SOLN IVC SCH ×2 (19:19→23:42)
[2021-05-29] MEDS: ACETYLCYSTEINE IVC SCH (21:10)
[2021-05-29] MEDS: WATER IVC SCH (21:10)
[2021-05-29] MEDS: D5 IVC SCH (21:10)
[2021-05-30] MEDS: Midazolam HCl 50 MG/100 ML IV.SOLN IVC SCH ×2 (00:10→19:58)
[2021-05-30] MEDS: PrismaSATE BGK 4/2.5 5,000 ML CRRT SCH ×12 (00:24→15:00)
[2021-05-30] MEDS ORDERED: Isovue-370 500 ML BOTTLE IVP ONE (00:54)
[2021-05-30] MEDS ORDERED: 0.9 % Sodium Chloride 1,000 ML ONE ×2 (00:57→16:35)
[2021-05-30] MEDS: 0.9 % Sodium Chloride 1,000 ML PRIME SCH ×2 (02:05→02:09)
[2021-05-30] MEDS: Norepinephrine 4 MG/254 ML IV.SOLN IVC SCH ×6 (02:35→20:22)
[2021-05-30] MEDS: Sodium Bicarbonate 150 MEQ in D5% in Water 1,000 ML IVC SCH ×2 (03:24→09:07)
[2021-05-30] MEDS: Ipratropium/Albuterol Neb 3 ML IH SCH ×4 (03:25→19:51)
[2021-05-30] MEDS: Artificial Tears SOLN 15 ML BOTTLE BOTH EYES SCH ×5 (03:30→19:58)
[2021-05-30 03:59] LABS: Hematocrit 39.3 % (37.5-50.1); Hemoglobin 12.1 g/dL (12.9-16.9); Immature Platelets 18.4 % (1.1-6.1); Mean Corpuscular HGB Conc 30.8 g/dL (31.6-35.5); Mean Corpuscular Hemoglobin 31.3 pg (28.0-33.3); Mean Corpuscular Volume 101.8 fL (83.0-100.0); Mean Platelet Volume 13.3 fL (9.4-12.4); Nucleated Red Blood Cells 0.8 /100 WBC (0); Platelet Count 117 K/mcL (140-400); Red Blood Count 3.86 M/mcL (4.19-5.50); White Blood Count 18.4 K/mcL (4.3-11.1)
[2021-05-30 04:00] LABS: VBG Ionized Calcium 0.94 mmol/L (1.15-1.35)
[2021-05-30 04:04] LABS: INR 2.3
[2021-05-30 04:07] LABS: Activated Partial Thrombo Time 49.3 Seconds (26.0-36.0)
[2021-05-30 04:21] LABS: ABG Base Excess -13 mEq/L (-2 to 3); ABG HCO3 15 mEq/L (21-27); ABG Oxygen Saturation 92 % (95-98); ABG PCO2 41 mmHg (35-45); ABG PH 7.17 pH Units (7.32-7.45); ABG PO2 78 mmHg (85-104); ABG TCO2 16 mEq/L (20-26); Blood Gas VT 450 cc
[2021-05-30 04:22] LABS: Lymphocytes # 1.5 K/mcL (0.6-4.6); Monocytes # 1.1 K/mcL (0.0-1.3); Neutrophils # 15.8 K/mcL (1.6-8.9); Platelet Estimate Slight Decrease (Normal); Toxic Granulation Present (Not Present)
[2021-05-30 04:30] LABS: Albumin 2.5 g/dL (3.5-5.7); Bilirubin,Direct 2.1 mg/dL (0.0-0.2); Bilirubin,Indirect 1.3 mg/dL (0.0-1.0); Bilirubin,Total 3.4 mg/dL (0.3-1.0); Globulin 2.4 g/dL (2.4-3.5); Total Protein 4.9 g/dL (6.4-8.9)
[2021-05-30 04:33] LABS: Albumin 2.5 g/dL (3.5-5.7); Bilirubin,Total 3.4 mg/dL (0.3-1.0); Calcium 7.3 mg/dL (8.6-10.3); Globulin 2.4 g/dL (2.4-3.5); Magnesium 2.5 mg/dL (1.6-2.6); Phosphorous 3.8 mg/dL (2.7-4.5); Potassium 5.3 mEq/L (3.5-5.1); Total Protein 4.9 g/dL (6.4-8.9)
[2021-05-30] MEDS: *HR* Heparin 5,000 UNIT/ML VIAL SQ SCH ×2 (05:50→14:51)
[2021-05-30] MEDS: *HR* Dextrose 50 % in Water (Vial) 50 ML VIAL IVP PRN ×3 (06:10→10:40)
[2021-05-30] MEDS: Insulin LISPRO 300 UNITS/3 ML VIAL SUBQ SCH ×3 (06:12→18:58)
[2021-05-30] MEDS: Calcium Gluconate 1gm/50mL 1 GM/50 ML BAG IVPB PRN ×2 (06:18→07:04)
[2021-05-30] MEDS: Piperacillin/Tazobactam 3.375 GM in 0.9 % Sodium Chloride Mini Bag 100 ML IVPB SCH ×2 (06:53→19:53)
[2021-05-30] MEDS: FentaNYL (PF) 1,000 MCG/100 ML IV.SOLN IVC SCH ×2 (08:17→19:27)
[2021-05-30] MEDS: Aspirin 81 MG TAB.CHEW PO SCH (08:30)
[2021-05-30] MEDS: Lactulose Oral Soln 20 GM/30 ML UDC PO SCH ×2 (08:30→19:59)
[2021-05-30] MEDS: Chlorhexidine Rinse 15 ML MOUTHWASH MM SCH ×2 (08:39→19:58)
[2021-05-30] MEDS ORDERED: *HR* Dextrose 50 % in Water (Syg) 50 ML SYRINGE ONE ×2 (09:17→16:04)
[2021-05-30] MEDS ORDERED: Vasopressin 40 UNIT in D5% in Water 100 ML IVC SCH (13:00)
[2021-05-30 13:07] LABS: VBG Ionized Calcium 0.99 mmol/L (1.15-1.35)
[2021-05-30 13:24] LABS: BUN/Creatinine Ratio 14 (6-26); Blood Urea Nitrogen 13 mg/dL (8-23); Calcium 7.4 mg/dL (8.6-10.3); Carbon Dioxide 18 mEq/L (23-29); Chloride 100 mEq/L (98-107); Glucose 81 mg/dL (70-105); Magnesium 2.5 mg/dL (1.6-2.6); Osmolality,Calculated 277 (280-300); Potassium 5.5 mEq/L (3.5-5.1); Sodium 134 mEq/L (136-145); eGFR For African Americans > 60 (> 60); eGFR For Non-African Americans > 60 (> 60)
[2021-05-30] MEDS ORDERED: 0.9 % Sodium Chloride 500 ML ONE (13:54)
[2021-05-30] MEDS ORDERED: *HR* Dextrose 50 % in Water (Syg) 50 ML SYRINGE IVP ONE (16:09)
[2021-05-30] MEDS ORDERED: D10% in Water 500 ML IVC SCH (16:45)
[2021-05-30] MEDS ORDERED: *HR* Heparin 5,000 UNIT/ML VIAL ONE (19:17)
[2021-05-30] MEDS: WATER IVC SCH (19:58)
[2021-05-30] MEDS: D5 IVC SCH (19:58)
[2021-05-30] MEDS: ACETYLCYSTEINE IVC SCH (19:58)
[2021-05-30 20:07] VITALS: PULSE 50
[2021-05-30 20:22] VITALS: TEMP 97.8
[2021-05-30 22:03] VITALS: BP 91/42; O2SAT 98
[2021-05-31] MEDS: Ipratropium/Albuterol Neb 3 ML IH SCH (03:39)
[2021-06-04 02:25] LABS: Alpha 2 Globulin (PEP) 0.67 g/dL (0.48-1.05); Beta Globulin (PEP) 0.49 g/dL (0.48-1.10)
[2021-06-04 10:38] LABS: IFE Reflexed IFE Done; Immunoglobulin A 319 mg/dL (68-408); Immunoglobulin G 930 mg/dL (768-1632); Immunoglobulin M 77 mg/dL (35-263)
== END 2021-05-30 22:39 | disposition expired | DRG 720 ==
LOC: 2NENU → SUATTDRO 05-28 02:04 → ICNU 05-28 16:46
PROVIDERS: ADMIT Internal Medicine; ATTEND Internal Medicine